=== PATIENT | female | born 1965 | race Caucasian/White ===

== ENCOUNTER 2018-01-31 05:54 | Emergency (ER) | payer OTHER, SELFPAY ==
[2018-01-31] VITALS (10 sets, daily range): BP systolic 117–150; BP diastolic 64–88; PULSE 80–116; RESP 14–20; TEMP 37; O2SAT 95–100; BMI 35.7
--- NOTE | 2018-01-31 06:01 | DI.RAD.S_ITS ---
PROCEDURE: XR CHEST 1V INDICATIONS: 53 year-old female with chest pain. TECHNIQUE: One view of the chest was acquired. COMPARISON: [facility], CR, XR CHEST 1 VIEW, 09/13/2017, 17:32. [facility], CR, CHEST 2 VIEW, 10/29/2016, 19:41. FINDINGS: Surgical changes and devices: None. Lungs and pleura: No pleural effusions or pneumothorax. Lungs are clear. Mediastinum: Mediastinal contours appear normal. Heart size is normal. Bones and chest wall: No suspicious bony lesions. Overlying soft tissues appear unremarkable. IMPRESSION: No acute cardiopulmonary disease. Dictated by: Chau Sands M.D. on 01/31/2018 at 7:58 Approved by: Chau Sands M.D. on 01/31/2018 at 7:59
--- NOTE | 2018-01-31 06:11 | ED_ITS ---
HPI - Chest Pain <Palma Reddy DO - Last Filed: 02/03/18 07:05> General Chief Complaint: Chest Pain Stated Complaint: chest pain, diarrhea shortness of breath Time Seen by Provider: 01/31/18 06:01 Source: patient, family and RN notes reviewed Mode of arrival: ambulatory Limitations: no limitations History of Present Illness HPI narrative: Patient is a 53-year-old female with history of atrial flutter and lupus presenting with chest pain. She said it has been ongoing since yesterday worse with exertion. The she was able to get to sleep last night however at 4:30 a.m. this morning it woke her from her sleep. It goes all across her chest. No known coronary artery disease. She denies any heart palpitations the, cough dizziness MD complaint: chest pain Onset (ago): day(s) Duration: constant Relieving factors: nothing Exacerbating factors: exertion Related Data Home Medications Medication Instructions Recorded Confirmed bisoprolol fumarate 5 mg OR Q DAY #0 10/29/16 01/31/18 levothyroxine [Synthroid] 25 mcg OR Q DAY #0 10/29/16 01/31/18 warfarin [Coumadin] 2.5 mg PO DAILY 01/31/18 01/31/18 Allergies Allergy/AdvReac Type Severity Reaction Status Date / Time prochlorperazine Allergy Severe Swelling Verified 01/31/18 09:20 [From COMPAZINE] of Lip/Tongue/Throat ondansetron [From Zofran] Allergy Intermediate Swelling Verified 01/31/18 06:46 of Lip/Tongue/Throat epinephrine [EPINEPHRINE] AdvReac Unknown TACHY Verified 01/31/18 06:46 hydromorphone [From DILAUDID] AdvReac Unknown CAN'T Verified 01/31/18 06:46 BREATH Review of Systems <DO Xuan Parker Last Filed: 02/03/18 07:05> Review of Systems All systems reviewed & are unremarkable except as noted in HPI and below Constitutional Denies chills, Denies fever(s), Denies lethargy and Denies weakness Cardiovascular Reports as per HPI and Reports dyspnea on exertion Respiratory Denies pain on inspiration, Denies pain with cough and Reports dyspnea on exertion Gastrointestinal Gastrointestinal: Denies abdominal pain, Denies change in bowel habits, Denies diarrhea, Denies nausea and Denies vomiting Musculoskeletal Denies back pain, Denies muscle weakness, Denies numbness and Denies tingling Neurologic Denies numbness, Denies tingling and Denies weakness PFSH <Palma Reddy DO - Last Filed: 02/03/18 07:05> Comment: Father and all of father's siblings have had MIs in their 40s Exam <Palma Reddy DO - Last Filed: 02/03/18 07:05> Initial Vital Signs Initial Vital Signs: Vital Signs Temperature 98.6 F 01/31/18 06:08 Pulse Rate 110 H 01/31/18 06:08 Respiratory Rate 18 01/31/18 06:08 Blood Pressure 150/88 H 01/31/18 06:08 Pulse Oximetry 100 01/31/18 06:08 Const General: cooperative and well developed Nutritional Appearance: well nourished Orientation: alert, awake, oriented x3 and not confused Neck Neck: normal visual inspection, full ROM and No JVD Resp Effort & Inspection: normal respiratory effort, able to speak in complete sentences, no respiratory distress and no use of accessory muscles Auscultation: clear to auscultation bilaterally, no rales, no rhonchi and no wheezes Cardio Rate: regular rate Rhythm: regular rhythm Heart Sounds: S1 normal and S2 normal Pulses: normal peripheral pulses GI Inspection: non-distended Palpation: soft, no hepatosplenomegaly, No guarding, No pulsatile mass and No tender Auscultation: normal bowel sounds Skin General: no rashes or lesions noted, No jaundice and No petechiae Neuro General: alert, oriented x3, gait normal and no focal motor deficits Speech: speech normal <Dudley Dodd, DO - Last Filed: 01/31/18 15:51> Initial Vital Signs Initial Vital Signs: Vital Signs Temperature 98.6 F 01/31/18 06:08 Pulse Rate 110 H 01/31/18 06:08 Respiratory Rate 18 01/31/18 06:08 Blood Pressure 150/88 H 01/31/18 06:08 Pulse Oximetry 100 01/31/18 06:08 <Dudley Dodd DO - Last Filed: 01/31/18 15:51> HEART Score Heart Score history: Moderately Suspicious Heart Score EKG: Normal Heart Score Age: 45-64 years old Heart Score risk factors: 1-2 risk factors Heart Score troponin: < or = to normal limit Heart Score Total: 3 Course <Palma Reddy DO - Last Filed: 02/03/18 07:05> Hospital Course: Records from [facility] obtained and reviewed. Old EKG reviewed and no changes noted. Continues to be nonischemic Orders Ordered: Discontinued Medications Aspirin (Aspirin Chew) 324 mg PO NOW ONE Stop: 01/31/18 06:02 Last Admin: 01/31/18 06:31 Dose: 324 mg Diphenhydramine HCl (Benadryl) 25 mg IV NOW ONE Stop: 01/31/18 09:36 Last Admin: 01/31/18 09:11 Dose: 25 mg Sodium Chloride (Normal Saline 0.9%) 1,000 mls @ 150 mls/hr IV CONT SHABBIR Last Admin: 01/31/18 06:32 Dose: 150 mls/hr Methylprednisolone (Solu-Medrol 125 Mg Vial) 125 mg IV NOW ONE Stop: 01/31/18 09:36 Last Admin: 01/31/18 09:11 Dose: 125 mg Nitroglycerin (Nitrostat) 0.4 mg SL [id number] PRN PRN Reason: Chest Pain Last Admin: 01/31/18 06:33 Dose: 0.4 mg Pantoprazole Sodium (Protonix) 40 mg IV NOW ONE Stop: 01/31/18 06:53 Last Admin: 01/31/18 07:27 Dose: 40 mg Vital Signs - 8 hr 01/31/18 08:26 01/31/18 09:17 01/31/18 09:38 Pulse Rate 81 89 82 Respiratory Rate 20 14 18 Blood Pressure Blood Pressure [Left Arm] 129/77 H 126/75 H 135/85 H Pulse Oximetry 98 100 99 01/31/18 10:38 01/31/18 12:02 Pulse Rate 80 88 Respiratory Rate 16 17 Blood Pressure 124/64 H Blood Pressure [Left Arm] 117/70 Pulse Oximetry 97 99 <Dudley Dodd DO - Last Filed: 01/31/18 15:51> Orders Ordered: Discontinued Medications Aspirin (Aspirin Chew) 324 mg PO NOW ONE Stop: 01/31/18 06:02 Last Admin: 01/31/18 06:31 Dose: 324 mg Diphenhydramine HCl (Benadryl) 25 mg IV NOW ONE Stop: 01/31/18 09:36 Last Admin: 01/31/18 09:11 Dose: 25 mg Sodium Chloride (Normal Saline 0.9%) 1,000 mls @ 150 mls/hr IV CONT SHABBIR Last Admin: 01/31/18 06:32 Dose: 150 mls/hr Methylprednisolone (Solu-Medrol 125 Mg Vial) 125 mg IV NOW ONE Stop: 01/31/18 09:36 Last Admin: 01/31/18 09:11 Dose: 125 mg Nitroglycerin (Nitrostat) 0.4 mg SL [id number] PRN PRN Reason: Chest Pain Last Admin: 01/31/18 06:33 Dose: 0.4 mg Pantoprazole Sodium (Protonix) 40 mg IV NOW ONE Stop: 01/31/18 06:53 Last Admin: 01/31/18 07:27 Dose: 40 mg Reevaluation(s) Reevaluation #1: Patient received in sign out at 7:[address] Reddy. I have independently interviewed and examined the patient. She is still having some sharp and stabbing left anterior chest pain, reproducible with palpation, deep breath and movement. She does continue to complain of shortness of breath and has a history of pulmonary embolism as well as other clots thought due to her lupus. CT angiogram for PE ordered. Repeat troponin at the 3 hr wilian Time: 08:48 Reevaluation #2: Records obtained from admission at [facility] and September. CT angiogram of chest was negative for PE. Echocardiogram showed EF of 50-55% with no valvular pathology. Stress test impressions says probable normal myocardial perfusion study Records from would be obtained regarding her recent hospitalization for pneumonia. Old EKG reviewed and no ischemic changes noted Time: 10:04 Vital Signs - 8 hr 01/31/18 08:26 01/31/18 09:17 01/31/18 09:38 Pulse Rate 81 89 82 Respiratory Rate 20 14 18 Blood Pressure Blood Pressure [Left Arm] 129/77 H 126/75 H 135/85 H Pulse Oximetry 98 100 99 01/31/18 10:38 01/31/18 12:02 Pulse Rate 80 88 Respiratory Rate 16 17 Blood Pressure 124/64 H Blood Pressure [Left Arm] 117/70 Pulse Oximetry 97 99 MDM - Chest Pain <Palma Reddy, - Last Filed: 02/03/18 07:05> Lab Data Result diagrams: 01/31/18 06:30 01/31/18 06:30 Lab Results 01/31/18 01/31/18 01/31/18 Range/Units 06:30 06:30 06:30 WBC 13.1 H (4.5-11.0) X10^3/uL RBC 4.51 (4.0-5.2) X10^6/uL Hgb 12.2 (12.0-16.0) g/dL Hct 37.3 (36-46) % MCV 82.8 (80-100) fL MCH 27.0 (26-34) PG MCHC 32.6 (30-36) % RDW 14.4 (11.6-14.8) % Plt Count 277 (150-400) X10^3/uL Neut % (Auto) 76.2 H (50-75) % Lymph % (Auto) 16.0 L (25-40) % [place] % (Auto) 6.7 (3-14) % Eos % (Auto) 0.8 L (2-4) % Baso % (Auto) 0.3 (0-2) % Neut # (Auto) 99265 H (5146-8007) /uL PT 21.8 H (10.1-12.7) SECONDS INR 2.0 H (0.9-1.3) APTT 38 H (26.4-36.2) SECONDS Sodium 139 (137-145) mmol/L Potassium 4.0 (3.4-5.1) mmol/L Chloride 104 (98-107) mmol/L Carbon Dioxide 23 (22-32) mmol/L BUN 16 (7-17) mg/dL Creatinine 0.70 (0.52-1.04) mg/dL Estimated GFR > 60.0 (>60) mL/min BUN/Creatinine Ratio 22.9 H (6-22) Glucose 116 H (70-100) mg/dL Calcium 9.2 (8.4-10.2) mg/dL Total Bilirubin 0.3 (0.2-1.3) mg/dL AST 24 (14-36) IU/L ALT 41 (9-52) IU/L Alkaline Phosphatase 54 (38-126) U/L Total Creatine Kinase 34 (30-135) U/L Troponin I < 0.012 (0.01-0.034) ng/mL B-Natriuretic Peptide < 100.0 (<100) Total Protein 7.3 (6.3-8.2) g/dL Albumin 4.0 (3.5-5.0) g/dL Globulin 3.3 (1.7-4.1) g/dL Albumin/Globulin Ratio 1.2 (1.0-2.8) Lipase 319 H (23-300) U/L Urine RBC (0-5/HPF) Urine WBC (0-5/HPF) Ur Squamous Epith Cells Calcium Oxalate Crystal (None) Urine Bacteria (None) Ur Culture Indicated? Micro UA Comment 01/31/18 01/31/18 Range/Units 07:39 10:05 WBC (4.5-11.0) X10^3/uL RBC (4.0-5.2) X10^6/uL Hgb (12.0-16.0) g/dL Hct (36-46) % MCV (80-100) fL MCH (26-34) PG MCHC (30-36) % RDW (11.6-14.8) % Plt Count (150-400) X10^3/uL Neut % (Auto) (50-75) % Lymph % (Auto) (25-40) % [place] % (Auto) (3-14) % Eos % (Auto) (2-4) % Baso % (Auto) (0-2) % Neut # (Auto) (7568-5436) /uL PT (10.1-12.7) SECONDS INR (0.9-1.3) APTT (26.4-36.2) SECONDS Sodium (137-145) mmol/L Potassium (3.4-5.1) mmol/L Chloride (98-107) mmol/L Carbon Dioxide (22-32) mmol/L BUN (7-17) mg/dL Creatinine (0.52-1.04) mg/dL Estimated GFR (>60) mL/min BUN/Creatinine Ratio (6-22) Glucose (70-100) mg/dL Calcium (8.4-10.2) mg/dL Total Bilirubin (0.2-1.3) mg/dL AST (14-36) IU/L ALT (9-52) IU/L Alkaline Phosphatase (38-126) U/L Total Creatine Kinase (30-135) U/L Troponin I < 0.012 (0.01-0.034) ng/mL B-Natriuretic Peptide (<100) Total Protein (6.3-8.2) g/dL Albumin (3.5-5.0) g/dL Globulin (1.7-4.1) g/dL Albumin/Globulin Ratio (1.0-2.8) Lipase (23-300) U/L Urine RBC 5-10/hpf H (0-5/HPF) Urine WBC None seen (0-5/HPF) Ur Squamous Epith Cells >30 /hpf H Calcium Oxalate Crystal Many H (None) Urine Bacteria None seen (None) Ur Culture Indicated? Cult not indicated Micro UA Comment Not Reportable <Dudley Dodd, DO - Last Filed: 01/31/18 15:51> Differential Diagnosis Likely fracture of rib, pneumothorax, stable angina, unstable angina pectoris, atypical chest pain, st elevation myocardial infarction, costochondritis and chest pain Medical Records Data Attestation: I reviewed the patient's medical records. Lab Data Attestation: I reviewed the patient's lab results. Lab Results 01/31/18 01/31/18 01/31/18 Range/Units 06:30 06:30 06:30 WBC 13.1 H (4.5-11.0) X10^3/uL RBC 4.51 (4.0-5.2) X10^6/uL Hgb 12.2 (12.0-16.0) g/dL Hct 37.3 (36-46) % MCV 82.8 (80-100) fL MCH 27.0 (26-34) PG MCHC 32.6 (30-36) % RDW 14.4 (11.6-14.8) % Plt Count 277 (150-400) X10^3/uL Neut % (Auto) 76.2 H (50-75) % Lymph % (Auto) 16.0 L (25-40) % [place] % (Auto) 6.7 (3-14) % Eos % (Auto) 0.8 L (2-4) % Baso % (Auto) 0.3 (0-2) % Neut # (Auto) 36904 H (9002-6687) /uL PT 21.8 H (10.1-12.7) SECONDS INR 2.0 H (0.9-1.3) APTT 38 H (26.4-36.2) SECONDS Sodium 139 (137-145) mmol/L Potassium 4.0 (3.4-5.1) mmol/L Chloride 104 (98-107) mmol/L Carbon Dioxide 23 (22-32) mmol/L BUN 16 (7-17) mg/dL Creatinine 0.70 (0.52-1.04) mg/dL Estimated GFR > 60.0 (>60) mL/min BUN/Creatinine Ratio 22.9 H (6-22) Glucose 116 H (70-100) mg/dL Calcium 9.2 (8.4-10.2) mg/dL Total Bilirubin 0.3 (0.2-1.3) mg/dL AST 24 (14-36) IU/L ALT 41 (9-52) IU/L Alkaline Phosphatase 54 (38-126) U/L Total Creatine Kinase 34 (30-135) U/L Troponin I < 0.012 (0.01-0.034) ng/mL B-Natriuretic Peptide < 100.0 (<100) Total Protein 7.3 (6.3-8.2) g/dL Albumin 4.0 (3.5-5.0) g/dL Globulin 3.3 (1.7-4.1) g/dL Albumin/Globulin Ratio 1.2 (1.0-2.8) Lipase 319 H (23-300) U/L Urine RBC (0-5/HPF) Urine WBC (0-5/HPF) Ur Squamous Epith Cells Calcium Oxalate Crystal (None) Urine Bacteria (None) Ur Culture Indicated? Micro UA Comment 01/31/18 01/31/18 Range/Units 07:39 10:05 WBC (4.5-11.0) X10^3/uL RBC (4.0-5.2) X10^6/uL Hgb (12.0-16.0) g/dL Hct (36-46) % MCV (80-100) fL MCH (26-34) PG MCHC (30-36) % RDW (11.6-14.8) % Plt Count (150-400) X10^3/uL Neut % (Auto) (50-75) % Lymph % (Auto) (25-40) % [place] % (Auto) (3-14) % Eos % (Auto) (2-4) % Baso % (Auto) (0-2) % Neut # (Auto) (7616-9408) /uL PT (10.1-12.7) SECONDS INR (0.9-1.3) APTT (26.4-36.2) SECONDS Sodium (137-145) mmol/L Potassium (3.4-5.1) mmol/L Chloride (98-107) mmol/L Carbon Dioxide (22-32) mmol/L BUN (7-17) mg/dL Creatinine (0.52-1.04) mg/dL Estimated GFR (>60) mL/min BUN/Creatinine Ratio (6-22) Glucose (70-100) mg/dL Calcium (8.4-10.2) mg/dL Total Bilirubin (0.2-1.3) mg/dL AST (14-36) IU/L ALT (9-52) IU/L Alkaline Phosphatase (38-126) U/L Total Creatine Kinase (30-135) U/L Troponin I < 0.012 (0.01-0.034) ng/mL B-Natriuretic Peptide (<100) Total Protein (6.3-8.2) g/dL Albumin (3.5-5.0) g/dL Globulin (1.7-4.1) g/dL Albumin/Globulin Ratio (1.0-2.8) Lipase (23-300) U/L Urine RBC 5-10/hpf H (0-5/HPF) Urine WBC None seen (0-5/HPF) Ur Squamous Epith Cells >30 /hpf H Calcium Oxalate Crystal Many H (None) Urine Bacteria None seen (None) Ur Culture Indicated? Cult not indicated Micro UA Comment Not Reportable Imaging Data CT scan - chest: Radiologist's impression: PROCEDURE: CT ANGIO CHEST PE PROTOCOL INDICATIONS: Chest pain, Shortness of breath, history of pulmonary embolism, lupus TECHNIQUE: After the administration of intravenous contrast, 2 mm thick sections acquired from the pulmonary apices to the posterior costophrenic angles. 3-dimensional maximum intensity projection (MIP) coronal and sagittal reformats were then acquired through the thorax. For radiation dose reduction, the following was used: automated exposure control, adjustment of mA and/or kV according to patient size. COMPARISON: [facility], , XR CHEST 1V, 01/31/2018, 6:10. [facility] , CR, CHEST 2 VIEW, 10/29/2016, 19:41. FINDINGS: Image quality: Excellent. Pulmonary arteries: Pulmonary arteries are normal in size, and demonstrate no intraluminal filling defects to suggest central pulmonary embolism. Lungs and pleura: Lungs are clear. No pleural effusions or pneumothorax. Central and peripheral airways are patent. Mediastinum: Heart size is normal, without pericardial effusion. No mediastinal or hilar adenopathy. Thoracic aorta is normal in caliber and enhancement. Esophagus is normal in caliber, without hiatal hernia. Bones and chest wall: No suspicious bony lesions. Ribs and thoracic spine appear intact throughout. Thyroid gland is unremarkable. No axillary or supraclavicular adenopathy. Abdomen: Visualized upper abdominal solid organs appear normal in the early arterial phase of enhancement. IMPRESSION: 1. No pulmonary embolism. 2. Lungs are clear. Dictated by: Brigida Quinones M.D. on 01/31/2018 at 9:35 Approved by: Brigida Quinones M.D. on 01/31/2018 at 9:39 ECG Data Attestation: I personally reviewed and interpreted this ECG as follows: Prior ECG tracings: available for review MDM Narrative Medical decision making narrative: Patient is had multiple EKGs that are unchanged from prior. Multiple troponins are unremarkable. CT scan of chest demonstrates no PE or ongoing pneumonia. Her pain is sharp and reproducible upon palpation of her left anterior chest. She is been asymptomatic for quite some time in the emergency department Discharge Plan Departure Patient Disposition: Home, Self-Care Clinical Impression: Atypical chest pain Discharge Date/Time: 01/31/18 12:03 Interventions: ED Discharge Assessment Last Done: 01/31/18 12:02 Instructions: DI for Atypical Chest Pain Activity Restrictions/Additional Instructions: *You have been diagnosed with [ atypical chest pain ] *What to do: * continue to take medications as directed *Follow up with your primary care provider in 2-3 days *Return to ER if you should haveany new, worsening or concerning symptoms Prescriptions: No Action bisoprolol fumarate 5 MG tablet 5 mg OR Q DAY Qty: 0 RF: 0 levothyroxine [Synthroid] 25 MCG tablet 25 mcg OR Q DAY Qty: 0 RF: 0 warfarin [Coumadin] 2.5 mg Tablet 2.5 mg PO DAILY RF: 0 Referrals: Ana Ordonez MD [Primary Care Provider] - ED Cosign/Signout <Palma Reddy DO - Last Filed: 02/03/18 07:05> Sign Out Provider Sign Out Attestation: Patient signed out to Dr. Dodd at shift change. Labs and repeat EKG pending.
[2018-01-31] MEDS: ASPIRIN 81 MG TAB 324 MG PO (06:31)
[2018-01-31] MEDS: SODIUM CHLORIDE 0.9% 1,000 ML 150 ML IV (06:32)
[2018-01-31] MEDS: NITROGLYCERIN 0.4 MG SL TAB SL (06:33)
[2018-01-31 06:34] LABS: Add Manual Diff / Slide Review NO; Basophils Percent Auto 0.3 % (0-2); Eosinophils Percent Auto 0.8 % (2-4); Hematocrit 37.3 % (36-46); Hemoglobin 12.2 g/dL (12.0-16.0); Mean Corpuscular HGB Conc 32.6 % (30-36); Mean Corpuscular Volume 82.8 fL (80-100); Monocytes Percent Auto 6.7 % (3-14); Neutrophils Absolute Auto 10000 /uL (3000-5900); Neutrophils Percent Auto 76.2 % (50-75); Platelet Count 277 X10^3/uL (150-400); Red Blood Cell Count 4.51 X10^6/uL (4.0-5.2); Red Cell Distribution Width 14.4 % (11.6-14.8); White Blood Cell Count 13.1 X10^3/uL (4.5-11.0)
[2018-01-31 06:40] LABS: Prothrombin Time 21.8 SECONDS (10.1-12.7)
[2018-01-31 06:44] LABS: Alanine Aminotransferase 41 IU/L (9-52); Albumin Globulin Ratio 1.2 (1.0-2.8); Alkaline Phosphatase 54 U/L (38-126); Aspartate Aminotransferase 24 IU/L (14-36); BUN Creatinine Ratio 22.9 (6-22); Bilirubin Total 0.3 mg/dL (0.2-1.3); Blood Urea Nitrogen 16 mg/dL (7-17); Calcium 9.2 mg/dL (8.4-10.2); Carbon Dioxide 23 mmol/L (22-32); Chloride 104 mmol/L (98-107); Creatine Kinase 34 U/L (30-135); Estimated Glomerular Filt Rate > 60.0 mL/min (>60); Globulin 3.3 g/dL (1.7-4.1); Glucose 116 mg/dL (70-100); HEMOLYSIS < 15 (0-50); Lipase 319 U/L (23-300); Sodium 139 mmol/L (137-145); Total Protein 7.3 g/dL (6.3-8.2)
[2018-01-31 06:53] LABS: PTT Partial Thromboplastin Tim 38 SECONDS (26.4-36.2)
[2018-01-31 06:57] LABS: B Type Natriuretic Peptide < 100.0 (<100); Troponin I < 0.012 ng/mL (0.01-0.034)
[2018-01-31] MEDS: PANTOPRAZOLE 40 MG VIAL IV (07:27)
[2018-01-31 07:53] LABS: Bacteria Urine None Seen; WBC Urine None Seen (0-5/HPF)
[2018-01-31 08:03] LABS: RBC Urine 5-10/HPF (0-5/HPF); Squamous Epithelial Cell Urine >30 /HPF
[2018-01-31 08:04] LABS: Calcium Oxalate Crystals Urine Many; Culture Indicated Urine Cult Not Indicated
--- NOTE | 2018-01-31 08:48 | DI.CT.S_ITS ---
PROCEDURE: CT ANGIO CHEST PE PROTOCOL INDICATIONS: Chest pain, Shortness of breath, history of pulmonary embolism, lupus TECHNIQUE: After the administration of intravenous contrast, 2 mm thick sections acquired from the pulmonary apices to the posterior costophrenic angles. 3-dimensional maximum intensity projection (MIP) coronal and sagittal reformats were then acquired through the thorax. For radiation dose reduction, the following was used: automated exposure control, adjustment of mA and/or kV according to patient size. COMPARISON: [facility], CR, XR CHEST 1V, 01/31/2018, 6:10. [facility], , CHEST 2 VIEW, 10/29/2016, 19:41. FINDINGS: Image quality: Excellent. Pulmonary arteries: Pulmonary arteries are normal in size, and demonstrate no intraluminal filling defects to suggest central pulmonary embolism. Lungs and pleura: Lungs are clear. No pleural effusions or pneumothorax. Central and peripheral airways are patent. Mediastinum: Heart size is normal, without pericardial effusion. No mediastinal or hilar adenopathy. Thoracic aorta is normal in caliber and enhancement. Esophagus is normal in caliber, without hiatal hernia. Bones and chest wall: No suspicious bony lesions. Ribs and thoracic spine appear intact throughout. Thyroid gland is unremarkable. No axillary or supraclavicular adenopathy. Abdomen: Visualized upper abdominal solid organs appear normal in the early arterial phase of enhancement. IMPRESSION: 1. No pulmonary embolism. 2. Lungs are clear. Dictated by: Brigida Quinones M.D. on 01/31/2018 at 9:35 Approved by: Brigida Quinones M.D. on 01/31/2018 at 9:39
[2018-01-31] MEDS: methylPREDNISolone 125 MG/2 ML VIAL IV (09:11)
[2018-01-31] MEDS: diphenhydrAMINE 50 MG/ML VIAL 25 MG IV (09:11)
--- NOTE | 2018-01-31 09:11 | PC.NURSE ---
reports, throat thickening, no rash or itching, dr swan aware.
[2018-01-31 10:41] LABS: Troponin I < 0.012 ng/mL (0.01-0.034)
== END 2018-01-31 12:03 | disposition home or self-care (01) ==
PROVIDERS: Emergency Medicine; Emergency Provider Emergency Medicine; PCP Family Medicine
DX: R07.89 Other chest pain (principal)
CPT/HCPCS: 36415; 36591; 71045; 71275; 80053; 81003; 81015; 82550; 82553; 83690; 83880; 84484; 85025; 85610; 85730; 93005; 96374; 96375; 99285; C9113; J1200; J2930; Q9967

== ENCOUNTER 2018-10-05 19:04 | Emergency (ER) | payer OTHER, SELFPAY ==
[2018-10-05] VITALS (7 sets, daily range): BP systolic 110–153; BP diastolic 57–79; PULSE 73–89; RESP 10–21; TEMP 36.9; O2SAT 97–100; BMI 36.6
--- NOTE | 2018-10-05 19:35 | DI.RAD.S_ITS ---
PROCEDURE: XR CHEST 1V INDICATIONS: Chest pressure TECHNIQUE: One view of the chest was acquired. COMPARISON: [facility], CR, XR CHEST 1V, 01/31/2018, 6:10. FINDINGS: Surgical changes and devices: None. Lungs and pleura: Lungs are clear. No pleural effusions or pneumothorax. Mediastinum: Mediastinal contours appear normal. Heart size is normal. Bones and chest wall: No suspicious bony lesions. Overlying soft tissues appear unremarkable. IMPRESSION: No acute cardiopulmonary disease. Dictated by: Fadia Limon M.D. on 10/05/2018 at 20:10 Approved by: Fadia Limon M.D. on 10/05/2018 at 20:11
[2018-10-05 20:22] LABS: Add Manual Diff / Slide Review NO; Basophils Absolute Auto 100 /uL (0-100); Basophils Percent Auto 0.5 % (0-2); Eosinophils Absolute Auto 200 /uL (0-450); Eosinophils Percent Auto 2.1 % (2-4); Hematocrit 34.9 % (36-46); Hemoglobin 11.6 g/dL (12.0-16.0); Lymphocytes Absolute Auto 2200 /uL (1100-4500); Lymphocytes Percent Auto 20.8 % (25-40); Mean Corpuscular HGB Conc 33.3 % (30-36); Mean Corpuscular Hemoglobin 26.7 PG (26-34); Mean Corpuscular Volume 80.2 fL (80-100); Monocytes Absolute Auto 1000 /uL (0-900); Monocytes Percent Auto 9.3 % (3-14); Neutrophils Absolute Auto 7100 /uL (1500-7000); Neutrophils Percent Auto 67.3 % (50-75); Platelet Count 247 X10^3/uL (150-400); Red Blood Cell Count 4.35 X10^6/uL (4.0-5.2); Red Cell Distribution Width 16.6 % (11.6-14.8); White Blood Cell Count 10.6 X10^3/uL (4.5-11.0)
--- NOTE | 2018-10-05 20:30 | ED.SOB ---
HPI - SOB/Dyspnea <RAO Garcia - Last Filed: 10/05/18 21:42> General Chief Complaint: Shortness of Breath/Dyspnea Stated Complaint: states reaction to medication,sob Time Seen by Provider: 10/05/18 19:05 Source: patient Mode of arrival: ambulatory Limitations: no limitations History of Present Illness 53-year-old female with history of lupus is a nonsmoker here for complaint having pressure to her chest area. She reports that she was at Ophthalmology today and they gave her eyedrops for continued care for lens replacement surgery several weeks ago. They gave her dorzolamide and timolol combination eyedrops at approximately at 5 this afternoon and she reports having had chest pressure starting shortly after this timeframe. She also states she felt like she had dry throat at the same timeframe. She denies any pain. She does state that the tightness in her chest made it feel like she had a hard time taking a deep inspiration. She denies any sensation of tightening in her throat or anaphylaxis type of sensation she states that her symptoms are better at this timeframe and she is not having the shortness of breath. No nausea vomiting. No diaphoresis. She is ambulatory into the emergency room. Related Data Home Medications Medication Instructions Recorded Confirmed bisoprolol fumarate 5 mg OR Q DAY #0 10/29/16 01/31/18 levothyroxine [Synthroid] 25 mcg OR Q DAY #0 10/29/16 01/31/18 warfarin [Coumadin] 2.5 mg PO DAILY 01/31/18 01/31/18 Allergies Allergy/AdvReac Type Severity Reaction Status Date / Time prochlorperazine Allergy Severe Swelling Verified 10/05/18 19:20 [From COMPAZINE] of Lip/Tongue/Throat ondansetron [From Zofran] Allergy Intermediate Swelling Verified 10/05/18 19:20 of Lip/Tongue/Throat epinephrine [EPINEPHRINE] AdvReac Unknown TACHY Verified 10/05/18 19:20 hydromorphone [From DILAUDID] AdvReac Unknown CAN'T Verified 10/05/18 19:20 BREATH Review of Systems <RAO Garcia - Last Filed: 10/05/18 21:42> Constitutional Denies chills, Denies fever(s), Denies lethargy and Denies weakness Eyes Denies change in vision, Denies eye discharge, Denies irritation and Denies loss of vision ENT Ears, Nose, Mouth, and Throat: Denies change in voice, Denies neck pain and Denies sore throat Cardiovascular Denies irregular heart rhythm, Denies lightheadedness, Denies palpitations, Denies dyspnea, Denies dyspnea on exertion and Denies orthopnea Comments: Chest tightness after medication administration Respiratory Denies cough, Denies dyspnea, Denies dyspnea on exertion and Denies wheezing Gastrointestinal Gastrointestinal: Denies abdominal pain, Denies change in bowel habits, Denies diarrhea, Denies nausea and Denies vomiting Genitourinary Denies hematuria, Denies flank pain, Denies urinary incontinence and Denies urinary urgency Musculoskeletal Denies neck pain Neurologic Denies confusion, Denies loss of vision and Denies weakness Psychiatric Denies anxiety, Denies confusion, Denies depression, Denies homicidal ideation and Denies suicidal ideation Endocrine Denies palpitations Hematologic/Lymphatic Denies easy bruising Allergic/Immunologic Denies wheezing PFSH <RAO Garcia - Last Filed: 10/05/18 21:42> Medical History Atrial flutter (Acute) Lupus (Acute) Ulcerative colitis (Acute) Family History Father Coronary artery disease Family/Other Coronary artery disease Social History Smoking Status: Never smoker alcohol intake: never Family History Father Coronary artery disease Family/Other Coronary artery disease Social History Smoking Status: Never smoker alcohol intake: never Exam <RAO Garcia - Last Filed: 10/05/18 21:42> Initial Vital Signs Initial Vital Signs: Vital Signs Temperature 98.4 F 10/05/18 19:10 Pulse Rate 81 10/05/18 19:10 Respiratory Rate 10 L 10/05/18 19:10 Blood Pressure 140/64 10/05/18 19:10 Pulse Oximetry 100 10/05/18 19:10 Const General: cooperative and well developed Nutritional Appearance: well nourished Orientation: alert, awake, oriented x3 and not confused HENMT Mouth: oral mucosae normal and moist mucous membranes Throat: posterior oropharynx normal Chest Chest: normal inspection of the chest Resp Effort & Inspection: normal respiratory effort, able to speak in complete sentences, no respiratory distress and no use of accessory muscles Auscultation: clear to auscultation bilaterally, no rales, no rhonchi and no wheezes Cardio Rate: regular rate Rhythm: regular rhythm Heart Sounds: no click, no gallops, no murmurs and no rubs Skin General: no rashes or lesions noted, No jaundice and No petechiae Neuro General: alert, oriented x3, gait normal and no focal motor deficits Speech: speech normal <Kong Figueroa DO - Last Filed: 10/05/18 22:15> Initial Vital Signs Initial Vital Signs: Vital Signs Temperature 98.4 F 10/05/18 19:10 Pulse Rate 81 10/05/18 19:10 Respiratory Rate 10 L 10/05/18 19:10 Blood Pressure 140/64 10/05/18 19:10 Pulse Oximetry 100 10/05/18 19:10 Course <RAO Garcia - Last Filed: 10/05/18 21:42> Orders Ordered: ED Orders 10/05/18 19:19 EKG-12 Lead Stat 10/05/18 19:35 XR chest 1V Stat 10/05/18 20:16 Complete Blood Count AUTO DIFF Stat Comprehensive Metabolic Panel Stat Troponin & CK Cardiac Panel Stat 10/05/18 21:56 Troponin I Stat Vital Signs - 8 hr 10/05/18 19:10 10/05/18 19:30 10/05/18 20:55 Temperature 98.4 F Pulse Rate 81 74 89 Respiratory Rate 10 L 15 18 Blood Pressure 140/64 Blood Pressure [Right Arm] 153/79 H 129/72 Pulse Oximetry 100 99 97 10/05/18 21:30 10/05/18 22:00 Temperature Pulse Rate 76 76 Respiratory Rate 18 21 Blood Pressure Blood Pressure [Right Arm] 110/57 L 125/71 Pulse Oximetry 100 99 <Kong Figueroa DO - Last Filed: 10/05/18 22:15> Orders Ordered: ED Orders 10/05/18 19:19 EKG-12 Lead Stat 10/05/18 19:35 XR chest 1V Stat 10/05/18 20:16 Complete Blood Count AUTO DIFF Stat Comprehensive Metabolic Panel Stat Troponin & CK Cardiac Panel Stat 10/05/18 21:56 Troponin I Stat Vital Signs - 8 hr 10/05/18 19:10 10/05/18 19:30 10/05/18 20:55 Temperature 98.4 F Pulse Rate 81 74 89 Respiratory Rate 10 L 15 18 Blood Pressure 140/64 Blood Pressure [Right Arm] 153/79 H 129/72 Pulse Oximetry 100 99 97 10/05/18 21:30 10/05/18 22:00 Temperature Pulse Rate 76 76 Respiratory Rate 18 21 Blood Pressure Blood Pressure [Right Arm] 110/57 L 125/71 Pulse Oximetry 100 99 MDM - SOB/Dyspnea <RAO Garcia - Last Filed: 10/05/18 21:42> Lab Data Result diagrams: 10/05/18 20:16 10/05/18 20:16 Lab Results 10/05/18 10/05/18 Range/Units 20:16 20:16 WBC 10.6 (4.5-11.0) X10^3/uL RBC 4.35 (4.0-5.2) X10^6/uL Hgb 11.6 L (12.0-16.0) g/dL Hct 34.9 L (36-46) % MCV 80.2 (80-100) fL MCH 26.7 (26-34) PG MCHC 33.3 (30-36) % RDW 16.6 H (11.6-14.8) % Plt Count 247 (150-400) X10^3/uL Neut % (Auto) 67.3 (50-75) % Lymph % (Auto) 20.8 L (25-40) % [place] % (Auto) 9.3 (3-14) % Eos % (Auto) 2.1 (2-4) % Baso % (Auto) 0.5 (0-2) % Neut # (Auto) 7100 H (7299-3883) /uL Lymph # (Auto) 2200 (0773-1861) /uL [place] # (Auto) 1000 H (0-900) /uL Eos # (Auto) 200 (0-450) /uL Baso # (Auto) 100 (0-100) /uL Sodium 136 L (137-145) mmol/L Potassium 3.9 (3.4-5.1) mmol/L Chloride 103 (98-107) mmol/L Carbon Dioxide 26 (22-32) mmol/L BUN 12 (7-17) mg/dL Creatinine 1.00 (0.52-1.04) mg/dL Estimated GFR 58.5 L (>60) mL/min BUN/Creatinine Ratio 12.0 (6-22) Glucose 116 H (70-100) mg/dL Calcium 9.1 (8.4-10.2) mg/dL Total Bilirubin 0.1 L (0.2-1.3) mg/dL AST 34 (14-36) IU/L ALT 42 (9-52) IU/L Alkaline Phosphatase 54 (38-126) U/L Total Creatine Kinase 30 (30-135) U/L CK-MB (CK-2) TNP CK-MB (CK-2) Rel Index TNP Troponin I < 0.012 (0.01-0.034) ng/mL Total Protein 7.1 (6.3-8.2) g/dL Albumin 3.9 (3.5-5.0) g/dL Globulin 3.2 (1.7-4.1) g/dL Albumin/Globulin Ratio 1.2 (1.0-2.8) Imaging Data Chest x-ray: Radiologist's impression: [place] [address] XRay Report Signed Patient: Chaka Soto#: [id number] : 1965Acct:[id number] Age/Sex: 53 / FDate of Service: 10/05/18 Loc: Accession Number: [id number] Procedure: XR chest 1V Ordering Provider: Marcio Soriano PROCEDURE: XR CHEST 1V INDICATIONS: Chest pressure TECHNIQUE: One view of the chest was acquired. COMPARISON: [facility], , XR CHEST 1V, 01/31/2018, 6:10. FINDINGS: Surgical changes and devices: None. Lungs and pleura: Lungs are clear. No pleural effusions or pneumothorax. Mediastinum: Mediastinal contours appear normal. Heart size is normal. Bones and chest wall: No suspicious bony lesions. Overlying soft tissues appear unremarkable. IMPRESSION: No acute cardiopulmonary disease. Dictated by: Fadia Limon M.D. on 10/05/2018 at 20:10 Approved by: Fadia Limon M.D. on 10/05/2018 at 20:11 ECG Data Interpretation: EKG shows normal sinus rhythm with no ST elevation or depression. No ectopy. Ventricular rate is 77. Pr interval of 160. QRS duration of 90. QTC of 419. MDM Narrative Medical decision making narrative: Chest x-ray was obtained was unremarkable. EKG shows sinus rhythm with no ST elevation or depression. No ectopy. CBC and Chem panel were obtained were unremarkable. Two sets of cardiac enzymes were obtained and were unremarkable. Patient's symptoms have resolved. Listed side effects of dorzolamide and timolol list both chest pain and dyspnea. Symptoms the patient had earlier before is possible may be secondary to the medication administration. She is feeling much better at this timeframe. She is released home follow up with primary care provider. Follow up with Ophthalmology as scheduled. For any worsening symptoms return to the emergency room. <Kong Figueroa DO - Last Filed: 10/05/18 22:15> Lab Data Lab Results 10/05/18 10/05/18 Range/Units 20:16 20:16 WBC 10.6 (4.5-11.0) X10^3/uL RBC 4.35 (4.0-5.2) X10^6/uL Hgb 11.6 L (12.0-16.0) g/dL Hct 34.9 L (36-46) % MCV 80.2 (80-100) fL MCH 26.7 (26-34) PG MCHC 33.3 (30-36) % RDW 16.6 H (11.6-14.8) % Plt Count 247 (150-400) X10^3/uL Neut % (Auto) 67.3 (50-75) % Lymph % (Auto) 20.8 L (25-40) % [place] % (Auto) 9.3 (3-14) % Eos % (Auto) 2.1 (2-4) % Baso % (Auto) 0.5 (0-2) % Neut # (Auto) 7100 H (8481-0034) /uL Lymph # (Auto) 2200 (4190-2930) /uL [place] # (Auto) 1000 H (0-900) /uL Eos # (Auto) 200 (0-450) /uL Baso # (Auto) 100 (0-100) /uL Sodium 136 L (137-145) mmol/L Potassium 3.9 (3.4-5.1) mmol/L Chloride 103 (98-107) mmol/L Carbon Dioxide 26 (22-32) mmol/L BUN 12 (7-17) mg/dL Creatinine 1.00 (0.52-1.04) mg/dL Estimated GFR 58.5 L (>60) mL/min BUN/Creatinine Ratio 12.0 (6-22) Glucose 116 H (70-100) mg/dL Calcium 9.1 (8.4-10.2) mg/dL Total Bilirubin 0.1 L (0.2-1.3) mg/dL AST 34 (14-36) IU/L ALT 42 (9-52) IU/L Alkaline Phosphatase 54 (38-126) U/L Total Creatine Kinase 30 (30-135) U/L CK-MB (CK-2) TNP CK-MB (CK-2) Rel Index TNP Troponin I < 0.012 (0.01-0.034) ng/mL Total Protein 7.1 (6.3-8.2) g/dL Albumin 3.9 (3.5-5.0) g/dL Globulin 3.2 (1.7-4.1) g/dL Albumin/Globulin Ratio 1.2 (1.0-2.8) Discharge Plan Departure Patient Disposition: Home Clinical Impression: Chest tightness Instructions: DI for Atypical Chest Pain Activity Restrictions/Additional Instructions: Chest x-ray EKG and laboratory results today were unremarkable. Symptoms have resolved. Is possible that this is side effect of the medication was given to by Ophthalmology. Follow up with her primary care provider for further evaluation. Follow up with Ophthalmology as scheduled. For any worsening symptoms return to the emergency room. Prescriptions: No Action bisoprolol fumarate 5 MG tablet 5 mg OR Q DAY Qty: 0 RF: 0 levothyroxine [Synthroid] 25 MCG tablet 25 mcg OR Q DAY Qty: 0 RF: 0 warfarin [Coumadin] 2.5 mg Tablet 2.5 mg PO DAILY RF: 0 Referrals: Ana Ordonez MD [Primary Care Provider] - <Kong Figueroa DO - Last Filed: 10/05/18 22:15> Cosign ED Attending Brigetteature Attestation: I was available for consultation during this patient's emergency department encounter
--- NOTE | 2018-10-05 20:38 | ED_ITS ---
HPI - SOB/Dyspnea <RAO Garcia - Last Filed: 10/05/18 21:42> General Chief Complaint: Shortness of Breath/Dyspnea Stated Complaint: states reaction to medication,sob Time Seen by Provider: 10/05/18 19:05 Source: patient Mode of arrival: ambulatory Limitations: no limitations History of Present Illness 53-year-old female with history of lupus is a nonsmoker here for complaint having pressure to her chest area. She reports that she was at Ophthalmology today and they gave her eyedrops for continued care for lens replacement surgery several weeks ago. They gave her dorzolamide and timolol combination eyedrops at approximately at 5 this afternoon and she reports having had chest pressure starting shortly after this timeframe. She also states she felt like she had dry throat at the same timeframe. She denies any pain. She does state that the tightness in her chest made it feel like she had a hard time taking a deep inspiration. She denies any sensation of tightening in her throat or anaphylaxis type of sensation she states that her symptoms are better at this timeframe and she is not having the shortness of breath. No nausea vomiting. No diaphoresis. She is ambulatory into the emergency room. Related Data Home Medications Medication Instructions Recorded Confirmed bisoprolol fumarate 5 mg OR Q DAY #0 10/29/16 01/31/18 levothyroxine [Synthroid] 25 mcg OR Q DAY #0 10/29/16 01/31/18 warfarin [Coumadin] 2.5 mg PO DAILY 01/31/18 01/31/18 Allergies Allergy/AdvReac Type Severity Reaction Status Date / Time prochlorperazine Allergy Severe Swelling Verified 10/05/18 19:20 [From COMPAZINE] of Lip/Tongue/Throat ondansetron [From Zofran] Allergy Intermediate Swelling Verified 10/05/18 19:20 of Lip/Tongue/Throat epinephrine [EPINEPHRINE] AdvReac Unknown TACHY Verified 10/05/18 19:20 hydromorphone [From DILAUDID] AdvReac Unknown CAN'T Verified 10/05/18 19:20 BREATH Review of Systems <RAO Garcia - Last Filed: 10/05/18 21:42> Constitutional Denies chills, Denies fever(s), Denies lethargy and Denies weakness Eyes Denies change in vision, Denies eye discharge, Denies irritation and Denies loss of vision ENT Ears, Nose, Mouth, and Throat: Denies change in voice, Denies neck pain and Denies sore throat Cardiovascular Denies irregular heart rhythm, Denies lightheadedness, Denies palpitations, Denies dyspnea, Denies dyspnea on exertion and Denies orthopnea Comments: Chest tightness after medication administration Respiratory Denies cough, Denies dyspnea, Denies dyspnea on exertion and Denies wheezing Gastrointestinal Gastrointestinal: Denies abdominal pain, Denies change in bowel habits, Denies diarrhea, Denies nausea and Denies vomiting Genitourinary Denies hematuria, Denies flank pain, Denies urinary incontinence and Denies urinary urgency Musculoskeletal Denies neck pain Neurologic Denies confusion, Denies loss of vision and Denies weakness Psychiatric Denies anxiety, Denies confusion, Denies depression, Denies homicidal ideation and Denies suicidal ideation Endocrine Denies palpitations Hematologic/Lymphatic Denies easy bruising Allergic/Immunologic Denies wheezing PFSH <RAO Garcia - Last Filed: 10/05/18 21:42> Medical History Atrial flutter (Acute) Lupus (Acute) Ulcerative colitis (Acute) Family History Father Coronary artery disease Family/Other Coronary artery disease Social History Smoking Status: Never smoker alcohol intake: never Family History Father Coronary artery disease Family/Other Coronary artery disease Social History Smoking Status: Never smoker alcohol intake: never Exam <RAO Garcia - Last Filed: 10/05/18 21:42> Initial Vital Signs Initial Vital Signs: Vital Signs Temperature 98.4 F 10/05/18 19:10 Pulse Rate 81 10/05/18 19:10 Respiratory Rate 10 L 10/05/18 19:10 Blood Pressure 140/64 10/05/18 19:10 Pulse Oximetry 100 10/05/18 19:10 Const General: cooperative and well developed Nutritional Appearance: well nourished Orientation: alert, awake, oriented x3 and not confused HENMT Mouth: oral mucosae normal and moist mucous membranes Throat: posterior oropharynx normal Chest Chest: normal inspection of the chest Resp Effort & Inspection: normal respiratory effort, able to speak in complete sentences, no respiratory distress and no use of accessory muscles Auscultation: clear to auscultation bilaterally, no rales, no rhonchi and no wheezes Cardio Rate: regular rate Rhythm: regular rhythm Heart Sounds: no click, no gallops, no murmurs and no rubs Skin General: no rashes or lesions noted, No jaundice and No petechiae Neuro General: alert, oriented x3, gait normal and no focal motor deficits Speech: speech normal <Kong Figueroa DO - Last Filed: 10/05/18 22:15> Initial Vital Signs Initial Vital Signs: Vital Signs Temperature 98.4 F 10/05/18 19:10 Pulse Rate 81 10/05/18 19:10 Respiratory Rate 10 L 10/05/18 19:10 Blood Pressure 140/64 10/05/18 19:10 Pulse Oximetry 100 10/05/18 19:10 Course <RAO Garcia - Last Filed: 10/05/18 21:42> Orders Ordered: ED Orders 10/05/18 19:19 EKG-12 Lead Stat 10/05/18 19:35 XR chest 1V Stat 10/05/18 20:16 Complete Blood Count AUTO DIFF Stat Comprehensive Metabolic Panel Stat Troponin & CK Cardiac Panel Stat 10/05/18 21:56 Troponin I Stat Vital Signs - 8 hr 10/05/18 19:10 10/05/18 19:30 10/05/18 20:55 Temperature 98.4 F Pulse Rate 81 74 89 Respiratory Rate 10 L 15 18 Blood Pressure 140/64 Blood Pressure [Right Arm] 153/79 H 129/72 Pulse Oximetry 100 99 97 10/05/18 21:30 10/05/18 22:00 Temperature Pulse Rate 76 76 Respiratory Rate 18 21 Blood Pressure Blood Pressure [Right Arm] 110/57 L 125/71 Pulse Oximetry 100 99 <Kong Figueroa DO - Last Filed: 10/05/18 22:15> Orders Ordered: ED Orders 10/05/18 19:19 EKG-12 Lead Stat 10/05/18 19:35 XR chest 1V Stat 10/05/18 20:16 Complete Blood Count AUTO DIFF Stat Comprehensive Metabolic Panel Stat Troponin & CK Cardiac Panel Stat 10/05/18 21:56 Troponin I Stat Vital Signs - 8 hr 10/05/18 19:10 10/05/18 19:30 10/05/18 20:55 Temperature 98.4 F Pulse Rate 81 74 89 Respiratory Rate 10 L 15 18 Blood Pressure 140/64 Blood Pressure [Right Arm] 153/79 H 129/72 Pulse Oximetry 100 99 97 10/05/18 21:30 10/05/18 22:00 Temperature Pulse Rate 76 76 Respiratory Rate 18 21 Blood Pressure Blood Pressure [Right Arm] 110/57 L 125/71 Pulse Oximetry 100 99 MDM - SOB/Dyspnea <RAO Garcia - Last Filed: 10/05/18 21:42> Lab Data Result diagrams: 10/05/18 20:16 10/05/18 20:16 Lab Results 10/05/18 10/05/18 Range/Units 20:16 20:16 WBC 10.6 (4.5-11.0) X10^3/uL RBC 4.35 (4.0-5.2) X10^6/uL Hgb 11.6 L (12.0-16.0) g/dL Hct 34.9 L (36-46) % MCV 80.2 (80-100) fL MCH 26.7 (26-34) PG MCHC 33.3 (30-36) % RDW 16.6 H (11.6-14.8) % Plt Count 247 (150-400) X10^3/uL Neut % (Auto) 67.3 (50-75) % Lymph % (Auto) 20.8 L (25-40) % [place] % (Auto) 9.3 (3-14) % Eos % (Auto) 2.1 (2-4) % Baso % (Auto) 0.5 (0-2) % Neut # (Auto) 7100 H (7324-2138) /uL Lymph # (Auto) 2200 (5335-5303) /uL [place] # (Auto) 1000 H (0-900) /uL Eos # (Auto) 200 (0-450) /uL Baso # (Auto) 100 (0-100) /uL Sodium 136 L (137-145) mmol/L Potassium 3.9 (3.4-5.1) mmol/L Chloride 103 (98-107) mmol/L Carbon Dioxide 26 (22-32) mmol/L BUN 12 (7-17) mg/dL Creatinine 1.00 (0.52-1.04) mg/dL Estimated GFR 58.5 L (>60) mL/min BUN/Creatinine Ratio 12.0 (6-22) Glucose 116 H (70-100) mg/dL Calcium 9.1 (8.4-10.2) mg/dL Total Bilirubin 0.1 L (0.2-1.3) mg/dL AST 34 (14-36) IU/L ALT 42 (9-52) IU/L Alkaline Phosphatase 54 (38-126) U/L Total Creatine Kinase 30 (30-135) U/L CK-MB (CK-2) TNP CK-MB (CK-2) Rel Index TNP Troponin I < 0.012 (0.01-0.034) ng/mL Total Protein 7.1 (6.3-8.2) g/dL Albumin 3.9 (3.5-5.0) g/dL Globulin 3.2 (1.7-4.1) g/dL Albumin/Globulin Ratio 1.2 (1.0-2.8) Imaging Data Chest x-ray: Radiologist's impression: [place] [address] XRay Report Signed Patient: Chaka Soto#: [id number] : 1965Acct:[id number] Age/Sex: 53 / FDate of Service: 10/05/18 Loc: Accession Number: [id number] Procedure: XR chest 1V Ordering Provider: Marcio Soriano PROCEDURE: XR CHEST 1V INDICATIONS: Chest pressure TECHNIQUE: One view of the chest was acquired. COMPARISON: [facility], , XR CHEST 1V, 01/31/2018, 6:10. FINDINGS: Surgical changes and devices: None. Lungs and pleura: Lungs are clear. No pleural effusions or pneumothorax. Mediastinum: Mediastinal contours appear normal. Heart size is normal. Bones and chest wall: No suspicious bony lesions. Overlying soft tissues appear unremarkable. IMPRESSION: No acute cardiopulmonary disease. Dictated by: Fadia Limon M.D. on 10/05/2018 at 20:10 Approved by: Fadia Limon M.D. on 10/05/2018 at 20:11 ECG Data Interpretation: EKG shows normal sinus rhythm with no ST elevation or depression . No ectopy. Ventricular rate is 77. Pr interval of 160. QRS duration of 90. QTC of 419. MDM Narrative Medical decision making narrative: Chest x-ray was obtained was unremarkable. EKG shows sinus rhythm with no ST elevation or depression. No ectopy. CBC and Chem panel were obtained were unremarkable. Two sets of cardiac enzymes were obtained and were unremarkable. Patient's symptoms have resolved. Listed side effects of dorzolamide and timolol list both chest pain and dyspnea. Symptoms the patient had earlier before is possible may be secondary to the medication administration. She is feeling much better at this timeframe. She is released home follow up with primary care provider. Follow up with Ophthalmology as scheduled. For any worsening symptoms return to the emergency room. <Kong Figueroa DO - Last Filed: 10/05/18 22:15> Lab Data Lab Results 10/05/18 10/05/18 Range/Units 20:16 20:16 WBC 10.6 (4.5-11.0) X10^3/uL RBC 4.35 (4.0-5.2) X10^6/uL Hgb 11.6 L (12.0-16.0) g/dL Hct 34.9 L (36-46) % MCV 80.2 (80-100) fL MCH 26.7 (26-34) PG MCHC 33.3 (30-36) % RDW 16.6 H (11.6-14.8) % Plt Count 247 (150-400) X10^3/uL Neut % (Auto) 67.3 (50-75) % Lymph % (Auto) 20.8 L (25-40) % [place] % (Auto) 9.3 (3-14) % Eos % (Auto) 2.1 (2-4) % Baso % (Auto) 0.5 (0-2) % Neut # (Auto) 7100 H (2615-9933) /uL Lymph # (Auto) 2200 (1143-0374) /uL [place] # (Auto) 1000 H (0-900) /uL Eos # (Auto) 200 (0-450) /uL Baso # (Auto) 100 (0-100) /uL Sodium 136 L (137-145) mmol/L Potassium 3.9 (3.4-5.1) mmol/L Chloride 103 (98-107) mmol/L Carbon Dioxide 26 (22-32) mmol/L BUN 12 (7-17) mg/dL Creatinine 1.00 (0.52-1.04) mg/dL Estimated GFR 58.5 L (>60) mL/min BUN/Creatinine Ratio 12.0 (6-22) Glucose 116 H (70-100) mg/dL Calcium 9.1 (8.4-10.2) mg/dL Total Bilirubin 0.1 L (0.2-1.3) mg/dL AST 34 (14-36) IU/L ALT 42 (9-52) IU/L Alkaline Phosphatase 54 (38-126) U/L Total Creatine Kinase 30 (30-135) U/L CK-MB (CK-2) TNP CK-MB (CK-2) Rel Index TNP Troponin I < 0.012 (0.01-0.034) ng/mL Total Protein 7.1 (6.3-8.2) g/dL Albumin 3.9 (3.5-5.0) g/dL Globulin 3.2 (1.7-4.1) g/dL Albumin/Globulin Ratio 1.2 (1.0-2.8) Discharge Plan Departure Patient Disposition: Home Clinical Impression: Chest tightness Instructions: DI for Atypical Chest Pain Activity Restrictions/Additional Instructions: Chest x-ray EKG and laboratory results today were unremarkable. Symptoms have resolved. Is possible that this is side effect of the medication was given to by Ophthalmology. Follow up with her primary care provider for further evaluation. Follow up with Ophthalmology as scheduled. For any worsening symptoms return to the emergency room. Prescriptions: No Action bisoprolol fumarate 5 MG tablet 5 mg OR Q DAY Qty: 0 RF: 0 levothyroxine [Synthroid] 25 MCG tablet 25 mcg OR Q DAY Qty: 0 RF: 0 warfarin [Coumadin] 2.5 mg Tablet 2.5 mg PO DAILY RF: 0 Referrals: Ana Ordonez MD [Primary Care Provider] - <Kong Figueroa DO - Last Filed: 10/05/18 22:15> Cosign ED Attending Brigetteature Attestation: I was available for consultation during this patient's emergency department encounter
[2018-10-05 20:41] LABS: Alanine Aminotransferase 42 IU/L (9-52); Albumin 3.9 g/dL (3.5-5.0); Albumin Globulin Ratio 1.2 (1.0-2.8); Alkaline Phosphatase 54 U/L (38-126); Aspartate Aminotransferase 34 IU/L (14-36); Bilirubin Total 0.1 mg/dL (0.2-1.3); Blood Urea Nitrogen 12 mg/dL (7-17); Calcium 9.1 mg/dL (8.4-10.2); Carbon Dioxide 26 mmol/L (22-32); Chloride 103 mmol/L (98-107); Creatine Kinase 30 U/L (30-135); Estimated Glomerular Filt Rate 58.5 mL/min (>60); Globulin 3.2 g/dL (1.7-4.1); Glucose 116 mg/dL (70-100); HEMOLYSIS < 15 (0-50); Potassium 3.9 mmol/L (3.4-5.1); Sodium 136 mmol/L (137-145); Total Protein 7.1 g/dL (6.3-8.2)
[2018-10-05 20:53] LABS: Troponin I < 0.012 ng/mL (0.01-0.034)
--- NOTE | 2018-10-05 21:41 | PC.NURSE ---
pt had an eye gtt at the dr, driving home with spouse, felt short of breath.
[2018-10-05 22:38] LABS: Troponin I < 0.012 ng/mL (0.01-0.034)
== END 2018-10-05 22:55 | disposition home or self-care (01) ==
PROVIDERS: Emergency Provider Nurse Practitioner Family; PCP Family Medicine
DX: R07.89 Other chest pain (principal); R06.02 Shortness of breath; R06.00 Dyspnea, unspecified
CPT/HCPCS: 36415; 71045; 80053; 82550; 84484; 85025; 93005; 93010; 93041; 99284; 99285

== ENCOUNTER 2018-11-07 07:56 | Emergency (ER) | payer OTHER, SELFPAY ==
[2018-11-07 08:00] VITALS: BP 115/96; PULSE 93; RESP 19; TEMP 36.9; O2SAT 100; BMI 36.6
[2018-11-07 08:05] VITALS: BP 115/96; PULSE 93; RESP 19; TEMP 36.9; O2SAT 100
--- NOTE | 2018-11-07 08:17 | ED.CHESTPAIN ---
HPI - Chest Pain General Chief Complaint: Chest Pain Stated Complaint: tightness in chest, a flutter, vaginal bleeding Time Seen by Provider: 11/07/18 08:16 Source: patient, RN notes reviewed and old records reviewed Mode of arrival: ambulatory Limitations: no limitations History of Present Illness HPI narrative: This is a 53-year-old female comes to the emergency department with complaints of tightness in her chest and fluttering. Patient states it was about 1:00 a.m. this morning. She states she felt a little sweaty. She felt a little short of breath. She denies any vomiting. She felt fluid nauseated today. She has had some loose stools this morning. She has had vaginal bleeding intermittently, she was started on progesterone last week and a half because of this and has scheduled for a hysteroscopy and a biopsy secondary to family history of uterine cancer. Patient has been taking her medication. She did take some lorazepam this morning which seemed to help. She came in because occasionally her potassium has been out of whack and she will have symptoms of it is low. She denies any syncope. No other new medication changes. Related Data Home Medications Medication Instructions Recorded Confirmed bisoprolol fumarate 5 mg PO DAILY #0 10/29/16 11/07/18 levothyroxine [Synthroid] 25 mcg PO DAILY #0 10/29/16 11/07/18 Vitamin C 1 tab PO DAILY 11/07/18 11/07/18 amlodipine 2.5 mg PO DAILY 11/07/18 11/07/18 aspirin 81 mg PO DAILY 11/07/18 11/07/18 lorazepam 0.5 mg PO Q6H PRN 11/07/18 11/07/18 mesalamine 3.6 g PO DAILY 11/07/18 11/07/18 norethindrone acetate See Rx Instructions .ROUTE .COMPLEX 11/07/18 11/07/18 potassium chloride 10 meq PO DAILY 11/07/18 11/07/18 prednisolone acetate See Rx Instructions .ROUTE .COMPLEX 11/07/18 11/07/18 rosuvastatin 10 mg PO DAILY 11/07/18 11/07/18 Allergies Allergy/AdvReac Type Severity Reaction Status Date / Time prochlorperazine Allergy Severe Swelling Verified 11/07/18 08:10 [From COMPAZINE] of Lip/Tongue/Throat ondansetron [From Zofran] Allergy Intermediate Swelling Verified 11/07/18 08:10 of Lip/Tongue/Throat epinephrine [EPINEPHRINE] AdvReac Unknown TACHY Verified 11/07/18 08:10 hydromorphone [From DILAUDID] AdvReac Unknown CAN'T Verified 11/07/18 08:10 BREATH Review of Systems Review of Systems ROS Unobtainable: All systems reviewed & are unremarkable except as noted in HPI and below Constitutional Denies chills and Denies fever(s) Eyes Reports loss of vision (chronic) Cardiovascular Denies chest pain, Denies chest pain at rest, Denies chest pain with activity, Reports diaphoresis, Denies syncope, Denies rapid heart rate, Denies edema, Reports irregular heart rhythm (fluttering feeling this morning), Denies lightheadedness, Reports palpitations, Reports dyspnea (resolved), Denies dyspnea on exertion and Denies orthopnea Respiratory Denies change in phlegm color, Denies chest congestion, Denies cough, Denies pain on inspiration, Reports dyspnea (resolved), Denies dyspnea on exertion and Denies wheezing Gastrointestinal Gastrointestinal: Denies abdominal pain, Denies change in bowel habits, Reports diarrhea (started this morning), Reports nausea and Denies vomiting Genitourinary Reports abnormal vaginal bleeding, Denies hematuria, Denies urinary frequency, Denies dysuria, Denies flank pain and Denies urinary urgency Integumentary/Breasts Denies rash and Denies unusual bruising Neurologic Denies syncope and Reports loss of vision (chronic) Endocrine Reports palpitations Allergic/Immunologic Denies wheezing [facility] Medical History (Updated 11/07/18 @ 10:56 by Corinne Lucio DO) Atrial flutter (Acute) Lupus (Acute) Ulcerative colitis (Acute) Decreased vision (Chronic) Family History (Updated 01/31/18 @ 06:10 by Palma Reddy DO) Father Coronary artery disease Family/Other Coronary artery disease Social History Smoking Status: Never smoker alcohol intake: never Family History (Updated 01/31/18 @ 06:10 by Palma Reddy DO) Father Coronary artery disease Family/Other Coronary artery disease Social History Smoking Status: Never smoker alcohol intake: never Exam Narrative Exam Narrative: GENERAL: Alert and oriented x three, moderately obese female in no acute distress. HEENT: Head normocephalic, atraumatic, face symmetric, moist mucous membranes, patient has decreased vision bilateral eyes. NECK: Supple, full range of motion CARDIOVASCULAR: Regular rate and rhythm without murmurs, rubs or gallops. No edema bilateral lower extremities. RESPIRATORY: Breath sounds equal bilaterally, no wheezes rales or rhonchi. ABDOMEN: Soft, nontender. Normoactive bowel sounds all 4 quadrants. No guarding or rebound, rigidity, no mass : No CVA tenderness EXTREMITIES: Normal range of motion, no clubbing or edema. Neurovascularly intact NEUROLOGICAL: Cranial nerves II through XII grossly intact. Moving all extremities SKIN: Warm, dry, no petechiae, no rashes or lesions. Initial Vital Signs Initial Vital Signs: Vital Signs Temperature 98.5 F 11/07/18 08:00 Pulse Rate 93 H 11/07/18 08:00 Respiratory Rate 19 11/07/18 08:00 Blood Pressure 115/96 H 11/07/18 08:00 Pulse Oximetry 100 11/07/18 08:00 Course Orders Ordered: ED Orders 11/07/18 11:23 Urinalysis and Microscopic Stat Discontinued Medications Sodium Chloride (Normal Saline 0.9%) 1,000 mls @ 1,000 mls/hr IV BOLUS ONE Stop: 11/07/18 09:15 Last Admin: 11/07/18 11:02 Dose: Not Given Vital Signs - 8 hr 11/07/18 11:21 Pulse Rate 86 Respiratory Rate 16 Blood Pressure 138/62 Pulse Oximetry 99 MDM - Chest Pain Medical Records Data Attestation: I reviewed the patient's medical records. Lab Data Attestation: I reviewed the patient's lab results. Result diagrams: 11/07/18 09:35 11/07/18 09:35 Lab Results 11/07/18 11/07/18 11/07/18 Range/Units 09:35 09:35 09:35 WBC 10.1 (4.5-11.0) X10^3/uL RBC 4.21 (4.0-5.2) X10^6/uL Hgb 11.1 L (12.0-16.0) g/dL Hct 34.4 L (36-46) % MCV 81.8 (80-100) fL MCH 26.3 (26-34) PG MCHC 32.2 (30-36) % RDW 15.2 H (11.6-14.8) % Plt Count 235 (150-400) X10^3/uL Neut % (Auto) 71.5 (50-75) % Lymph % (Auto) 19.9 L (25-40) % Nolan % (Auto) 6.7 (3-14) % Eos % (Auto) 1.5 L (2-4) % Baso % (Auto) 0.4 (0-2) % Neut # (Auto) 7200 H (4475-3928) /uL Lymph # (Auto) 2000 (8784-7341) /uL Nolan # (Auto) 700 (0-900) /uL Eos # (Auto) 100 (0-450) /uL Baso # (Auto) 0 (0-100) /uL PT 11.4 (10.1-12.7) SECONDS INR 1.0 (0.9-1.3) APTT 19 L D (26.4-36.2) SECONDS Sodium 137 (137-145) mmol/L Potassium 4.3 (3.4-5.1) mmol/L Chloride 104 (98-107) mmol/L Carbon Dioxide 26 (22-32) mmol/L BUN 13 (7-17) mg/dL Creatinine 0.90 (0.52-1.04) mg/dL Estimated GFR > 60.0 (>60) mL/min BUN/Creatinine Ratio 14.4 (6-22) Glucose 93 (70-100) mg/dL Calcium 8.8 (8.4-10.2) mg/dL Magnesium 1.8 (1.6-2.3) mg/dL Total Creatine Kinase 45 (30-135) U/L CK-MB (CK-2) TNP CK-MB (CK-2) Rel Index TNP Troponin I < 0.012 (0.01-0.034) ng/mL TSH (0.47-4.68) uIU/mL Urine Color Urine Appearance Urine pH (4.5-8.0) Ur Specific [place] (1.000-1.035) Urine Protein (Negative) Urine Glucose (UA) (Negative) g/dL Urine Ketones (NEGATIVE) Urine Occult Blood (Negative) Urine Nitrate (Negative) Urine Bilirubin (NEGATIVE) Urine Urobilinogen (0.2) E.U./dL Ur Leukocyte Esterase (NEGATIVE) Urine RBC (0-5/HPF) Urine WBC (0-5/HPF) Ur Squamous Epith Cells Urine Bacteria (None) Ur Culture Indicated? 11/07/18 11/07/18 Range/Units 09:35 11:23 WBC (4.5-11.0) X10^3/uL RBC (4.0-5.2) X10^6/uL Hgb (12.0-16.0) g/dL Hct (36-46) % MCV (80-100) fL MCH (26-34) PG MCHC (30-36) % RDW (11.6-14.8) % Plt Count (150-400) X10^3/uL Neut % (Auto) (50-75) % Lymph % (Auto) (25-40) % Nolan % (Auto) (3-14) % Eos % (Auto) (2-4) % Baso % (Auto) (0-2) % Neut # (Auto) (9622-2025) /uL Lymph # (Auto) (5229-5547) /uL Nolan # (Auto) (0-900) /uL Eos # (Auto) (0-450) /uL Baso # (Auto) (0-100) /uL PT (10.1-12.7) SECONDS INR (0.9-1.3) APTT (26.4-36.2) SECONDS Sodium (137-145) mmol/L Potassium (3.4-5.1) mmol/L Chloride (98-107) mmol/L Carbon Dioxide (22-32) mmol/L BUN (7-17) mg/dL Creatinine (0.52-1.04) mg/dL Estimated GFR (>60) mL/min BUN/Creatinine Ratio (6-22) Glucose (70-100) mg/dL Calcium (8.4-10.2) mg/dL Magnesium (1.6-2.3) mg/dL Total Creatine Kinase (30-135) U/L CK-MB (CK-2) CK-MB (CK-2) Rel Index Troponin I (0.01-0.034) ng/mL TSH 2.49 (0.47-4.68) uIU/mL Urine Color Yellow Urine Appearance Sl cloudy Urine pH 6.5 (4.5-8.0) Ur Specific [place] 1.025 (1.000-1.035) Urine Protein Negative (Negative) Urine Glucose (UA) Negative (Negative) g/dL Urine Ketones Negative (NEGATIVE) Urine Occult Blood 3+ H (Negative) Urine Nitrate Negative (Negative) Urine Bilirubin Negative (NEGATIVE) Urine Urobilinogen 0.2 (0.2) E.U./dL Ur Leukocyte Esterase Negative (NEGATIVE) Urine RBC 10-30/hpf H (0-5/HPF) Urine WBC 1-5/hpf (0-5/HPF) Ur Squamous Epith Cells 5-10 /hpf H Urine Bacteria Moderate (10-30) H (None) Ur Culture Indicated? Cult not indicated Imaging Data Chest x-ray: Radiologist's impression: [address] [address] XRay Report Signed Patient: Chaka Soto#: [id number] : 1965Acct:[id number] Age/Sex: 53 / FDate of Service: 11/07/18 Loc: ED Accession Number: [id number] Procedure: XR chest 1V Ordering Provider: Corinne Lucio D.O. PROCEDURE: XR CHEST 1V INDICATIONS: afluttering in chest/tightness TECHNIQUE: One view of the chest was acquired. COMPARISON: [facility], , XR CHEST 1V, 10/05/2018, 19:40. FINDINGS: Surgical changes and devices: None. Lungs and pleura: Lungs are clear. No pleural effusions or pneumothorax. Mediastinum: Mediastinal contours appear normal. Heart size is normal. Bones and chest wall: No suspicious bony lesions. Overlying soft tissues appear unremarkable. IMPRESSION: Stable cardiopulmonary examination of the chest without acute disease. Dictated by: Stanley Norton M.D. on 11/07/2018 at 8:33 Approved by: Stanley Norton M.D. on 11/07/2018 at 8:34 ECG Data Attestation: I personally reviewed and interpreted this ECG as follows: Interpretation: Sinus rhythm ventricular rate 82 P are 186 QRS 89 and QTC of [address] changes appreciated. Some nonspecific flattening. Patient has an EKG from 10/05/2018 that appears the same. [facility] Narrative Medical decision making narrative: Patient comes in with complaint of fluttering palpitation like feeling in her chest. She has a history of atrial flutter. No changes on telemetry or her EKG. Patient had negative troponin, lab work including TSH, CBC, potassium as well as renal function are normal range. Patient's potassium has improved since her last. She was seen at [facility] for similar symptoms and these were used for comparison as well as her EKG from there and here on her last visit. Patient has had 3 visits for similar symptoms. Discussed with patient she we were not able to get an IV but she was able to orally hydrate the department and was feeling better and felt comfortable returning home. We did discuss possibility of PE although this is lower on my differential. Patient's vital signs are normal, she has had palpitations but does have issues with cardiac arrhythmias. She does not have any other high risk factors at this time although she was recently started on progesterone. We did discuss that this could make her feel nauseated. She was started because of vaginal bleeding. She has follow-up in next week for this as well. Discharge Plan Departure Patient Disposition: Home Clinical Impression: Palpitations Discharge Date/Time: 11/07/18 11:21 Interventions: ED Discharge Assessment Last Done: 11/07/18 11:21 Instructions: DI for Palpitations Activity Restrictions/Additional Instructions: Follow-up with your primary care in the next 2-3 days for recheck. Continue home medications as prescribed. Return to the emergency department for worsening symptoms, passing out, sudden severe chest pain, new shortness of breath, persistent vomiting or other new or concerning symptoms. Prescriptions: No Action bisoprolol fumarate 5 MG tablet 5 mg PO DAILY Qty: 0 RF: 0 levothyroxine [Synthroid] 25 MCG tablet 25 mcg PO DAILY Qty: 0 RF: 0 lorazepam 0.5 mg tablet 0.5 mg PO Q6H PRN (Reason: Anxiety) RF: 0 amlodipine 2.5 mg tablet 2.5 mg PO DAILY RF: 0 potassium chloride 10 mEq tablet extended release 10 meq PO DAILY RF: 0 prednisolone acetate 1 % drops,suspension See Rx Instructions .ROUTE .COMPLEX RF: 0 norethindrone acetate 5 mg tablet See Rx Instructions .ROUTE .COMPLEX RF: 0 rosuvastatin 10 mg tablet 10 mg PO DAILY RF: 0 mesalamine 1.2 gram tablet,delayed release (DR/EC) 3.6 g PO DAILY RF: 0 aspirin 81 mg Tablet,Delayed Release (Dr/Ec) 81 mg PO DAILY RF: 0 Vitamin C 1 tab PO DAILY RF: 0 Referrals: Ana Ordonez MD [Primary Care Provider] -
--- NOTE | 2018-11-07 08:20 | ED_ITS ---
HPI - Chest Pain General Chief Complaint: Chest Pain Stated Complaint: tightness in chest, a flutter, vaginal bleeding Time Seen by Provider: 11/07/18 08:16 Source: patient, RN notes reviewed and old records reviewed Mode of arrival: ambulatory Limitations: no limitations History of Present Illness HPI narrative: This is a 53-year-old female comes to the emergency department with complaints of tightness in her chest and fluttering. Patient states it was about 1:00 a.m. this morning. She states she felt a little sweaty. She felt a little short of breath. She denies any vomiting. She felt fluid nauseated to day. She has had some loose stools this morning. She has had vaginal bleeding intermittently, she was started on progesterone last week and a half because of this and has scheduled for a hysteroscopy and a biopsy secondary to family history of uterine cancer. Patient has been taking her medication. She did take some lorazepam this morning which seemed to help. She came in because occasionally her potassium has been out of whack and she will have symptoms of it is low. She denies any syncope. No other new medication changes. Related Data Home Medications Medication Instructions Recorded Confirmed bisoprolol fumarate 5 mg PO DAILY #0 10/29/16 11/07/18 levothyroxine [Synthroid] 25 mcg PO DAILY #0 10/29/16 11/07/18 Vitamin C 1 tab PO DAILY 11/07/18 11/07/18 amlodipine 2.5 mg PO DAILY 11/07/18 11/07/18 aspirin 81 mg PO DAILY 11/07/18 11/07/18 lorazepam 0.5 mg PO Q6H PRN 11/07/18 11/07/18 mesalamine 3.6 g PO DAILY 11/07/18 11/07/18 norethindrone acetate See Rx Instructions .ROUTE .COMPLEX 11/07/18 11/07/18 potassium chloride 10 meq PO DAILY 11/07/18 11/07/18 prednisolone acetate See Rx Instructions .ROUTE .COMPLEX 11/07/18 11/07/18 rosuvastatin 10 mg PO DAILY 11/07/18 11/07/18 Allergies Allergy/AdvReac Type Severity Reaction Status Date / Time prochlorperazine Allergy Severe Swelling Verified 11/07/18 08:10 [From COMPAZINE] of Lip/Tongue/Throat ondansetron [From Zofran] Allergy Intermediate Swelling Verified 11/07/18 08:10 of Lip/Tongue/Throat epinephrine [EPINEPHRINE] AdvReac Unknown TACHY Verified 11/07/18 08:10 hydromorphone [From DILAUDID] AdvReac Unknown CAN'T Verified 11/07/18 08:10 BREATH Review of Systems Review of Systems ROS Unobtainable: All systems reviewed & are unremarkable except as noted in HPI and below Constitutional Denies chills and Denies fever(s) Eyes Reports loss of vision (chronic) Cardiovascular Denies chest pain, Denies chest pain at rest, Denies chest pain with activity, Reports diaphoresis, Denies syncope, Denies rapid heart rate, Denies edema, Reports irregular heart rhythm (fluttering feeling this morning), Denies lightheadedness, Reports palpitations, Reports dyspnea (resolved), Denies dyspnea on exertion and Denies orthopnea Respiratory Denies change in phlegm color, Denies chest congestion, Denies cough, Denies pain on inspiration, Reports dyspnea (resolved), Denies dyspnea on exertion and Denies wheezing Gastrointestinal Gastrointestinal: Denies abdominal pain, Denies change in bowel habits, Reports diarrhea (started this morning), Reports nausea and Denies vomiting Genitourinary Reports abnormal vaginal bleeding, Denies hematuria, Denies urinary frequency, Denies dysuria, Denies flank pain and Denies urinary urgency Integumentary/Breasts Denies rash and Denies unusual bruising Neurologic Denies syncope and Reports loss of vision (chronic) Endocrine Reports palpitations Allergic/Immunologic Denies wheezing COUNT INCLUDES THE [facility] Medical History (Updated 11/07/18 @ 10:56 by Corinne Lucio DO) Atrial flutter (Acute) Lupus (Acute) Ulcerative colitis (Acute) Decreased vision (Chronic) Family History (Updated 01/31/18 @ 06:10 by Palma Reddy DO) Father Coronary artery disease Family/Other Coronary artery disease Social History Smoking Status: Never smoker alcohol intake: never Family History (Updated 01/31/18 @ 06:10 by Palma Reddy DO) Father Coronary artery disease Family/Other Coronary artery disease Social History Smoking Status: Never smoker alcohol intake: never Exam Narrative Exam Narrative: GENERAL: Alert and oriented x three, moderately obese female in no acute distress. HEENT: Head normocephalic, atraumatic, face symmetric, moist mucous membranes, patient has decreased vision bilateral eyes. NECK: Supple, full range of motion CARDIOVASCULAR: Regular rate and rhythm without murmurs, rubs or gallops. No edema bilateral lower extremities. RESPIRATORY: Breath sounds equal bilaterally, no wheezes rales or rhonchi. ABDOMEN: Soft, nontender. Normoactive bowel sounds all 4 quadrants. No g uarding or rebound, rigidity, no mass : No CVA tenderness EXTREMITIES: Normal range of motion, no clubbing or edema. Neurovascularly intact NEUROLOGICAL: Cranial nerves II through XII grossly intact. Moving all extremities SKIN: Warm, dry, no petechiae, no rashes or lesions. Initial Vital Signs Initial Vital Signs: Vital Signs Temperature 98.5 F 11/07/18 08:00 Pulse Rate 93 H 11/07/18 08:00 Respiratory Rate 19 11/07/18 08:00 Blood Pressure 115/96 H 11/07/18 08:00 Pulse Oximetry 100 11/07/18 08:00 Course Orders Ordered: ED Orders 11/07/18 11:23 Urinalysis and Microscopic Stat Discontinued Medications Sodium Chloride (Normal Saline 0.9%) 1,000 mls @ 1,000 mls/hr IV BOLUS ONE Stop: 11/07/18 09:15 Last Admin: 11/07/18 11:02 Dose: Not Given Vital Signs - 8 hr 11/07/18 11:21 Pulse Rate 86 Respiratory Rate 16 Blood Pressure 138/62 Pulse Oximetry 99 MDM - Chest Pain Medical Records Data Attestation: I reviewed the patient's medical records. Lab Data Attestation: I reviewed the patient's lab results. Result diagrams: 11/07/18 09:35 11/07/18 09:35 Lab Results 11/07/18 11/07/18 11/07/18 Range/Units 09:35 09:35 09:35 WBC 10.1 (4.5-11.0) X10^3/uL RBC 4.21 (4.0-5.2) X10^6/uL Hgb 11.1 L (12.0-16.0) g/dL Hct 34.4 L (36-46) % MCV 81.8 (80-100) fL MCH 26.3 (26-34) PG MCHC 32.2 (30-36) % RDW 15.2 H (11.6-14.8) % Plt Count 235 (150-400) X10^3/uL Neut % (Auto) 71.5 (50-75) % Lymph % (Auto) 19.9 L (25-40) % [place] % (Auto) 6.7 (3-14) % Eos % (Auto) 1.5 L (2-4) % Baso % (Auto) 0.4 (0-2) % Neut # (Auto) 7200 H (8940-7277) /uL Lymph # (Auto) 2000 (6093-8748) /uL [place] # (Auto) 700 (0-900) /uL Eos # (Auto) 100 (0-450) /uL Baso # (Auto) 0 (0-100) /uL PT 11.4 (10.1-12.7) SECONDS INR 1.0 (0.9-1.3) APTT 19 L D (26.4-36.2) SECONDS Sodium 137 (137-145) mmol/L Potassium 4.3 (3.4-5.1) mmol/L Chloride 104 (98-107) mmol/L Carbon Dioxide 26 (22-32) mmol/L BUN 13 (7-17) mg/dL Creatinine 0.90 (0.52-1.04) mg/dL Estimated GFR > 60.0 (>60) mL/min BUN/Creatinine Ratio 14.4 (6-22) Glucose 93 (70-100) mg/dL Calcium 8.8 (8.4-10.2) mg/dL Magnesium 1.8 (1.6-2.3) mg/dL Total Creatine Kinase 45 (30-135) U/L CK-MB (CK-2) TNP CK-MB (CK-2) Rel Index TNP Troponin I < 0.012 (0.01-0.034) ng/mL TSH (0.47-4.68) uIU/mL Urine Color Urine Appearance Urine pH (4.5-8.0) Ur Specific Holder (1.000-1.035) Urine Protein (Negative) Urine Glucose (UA) (Negative) g/dL Urine Ketones (NEGATIVE) Urine Occult Blood (Negative) Urine Nitrate (Negative) Urine Bilirubin (NEGATIVE) Urine Urobilinogen (0.2) E.U./dL Ur Leukocyte Esterase (NEGATIVE) Urine RBC (0-5/HPF) Urine WBC (0-5/HPF) Ur Squamous Epith Cells Urine Bacteria (None) Ur Culture Indicated? 11/07/18 11/07/18 Range/Units 09:35 11:23 WBC (4.5-11.0) X10^3/uL RBC (4.0-5.2) X10^6/uL Hgb (12.0-16.0) g/dL Hct (36-46) % MCV (80-100) fL MCH (26-34) PG MCHC (30-36) % RDW (11.6-14.8) % Plt Count (150-400) X10^3/uL Neut % (Auto) (50-75) % Lymph % (Auto) (25-40) % [place] % (Auto) (3-14) % Eos % (Auto) (2-4) % Baso % (Auto) (0-2) % Neut # (Auto) (5608-8359) /uL Lymph # (Auto) (1785-0079) /uL [place] # (Auto) (0-900) /uL Eos # (Auto) (0-450) /uL Baso # (Auto) (0-100) /uL PT (10.1-12.7) SECONDS INR (0.9-1.3) APTT (26.4-36.2) SECONDS Sodium (137-145) mmol/L Potassium (3.4-5.1) mmol/L Chloride (98-107) mmol/L Carbon Dioxide (22-32) mmol/L BUN (7-17) mg/dL Creatinine (0.52-1.04) mg/dL Estimated GFR (>60) mL/min BUN/Creatinine Ratio (6-22) Glucose (70-100) mg/dL Calcium (8.4-10.2) mg/dL Magnesium (1.6-2.3) mg/dL Total Creatine Kinase (30-135) U/L CK-MB (CK-2) CK-MB (CK-2) Rel Index Troponin I (0.01-0.034) ng/mL TSH 2.49 (0.47-4.68) uIU/mL Urine Color Yellow Urine Appearance Sl cloudy Urine pH 6.5 (4.5-8.0) Ur Specific Holder 1.025 (1.000-1.035) Urine Protein Negative (Negative) Urine Glucose (UA) Negative (Negative) g/dL Urine Ketones Negative (NEGATIVE) Urine Occult Blood 3+ H (Negative) Urine Nitrate Negative (Negative) Urine Bilirubin Negative (NEGATIVE) Urine Urobilinogen 0.2 (0.2) E.U./dL Ur Leukocyte Esterase Negative (NEGATIVE) Urine RBC 10-30/hpf H (0-5/HPF) Urine WBC 1-5/hpf (0-5/HPF) Ur Squamous Epith Cells 5-10 /hpf H Urine Bacteria Moderate (10-30) H (None) Ur Culture Indicated? Cult not indicated Imaging Data Chest x-ray: Radiologist's impression: [address] [address] XRay Report Signed Patient: Chaka Soto#: [id number] : 1965Acct:[id number] Age/Sex: 53 / FDate of Service: 11/07/18 Loc: ED Accession Number: [id number] Procedure: XR chest 1V Ordering Provider: Corinne Lucio D.O. PROCEDURE: XR CHEST 1V INDICATIONS: afluttering in chest/tightness TECHNIQUE: One view of the chest was acquired. COMPARISON: [facility], , XR CHEST 1V, 10/05/2018, 19:40. FINDINGS: Surgical changes and devices: None. Lungs and pleura: Lungs are clear. No pleural effusions or pneumothorax. Mediastinum: Mediastinal contours appear normal. Heart size is normal. Bones and chest wall: No suspicious bony lesions. Overlying soft tissues appear unremarkable. IMPRESSION: Stable cardiopulmonary examination of the chest without acute disease. Dictated by: Stanley Norton M.D. on 11/07/2018 at 8:33 Approved by: Stanley Norton M.D. on 11/07/2018 at 8:34 ECG Data Attestation: I personally reviewed and interpreted this ECG as follows: Interpretation: Sinus rhythm ventricular rate 82 P are 186 QRS 89 and QTC of [address] changes appreciated. Some nonspecific flattening. Patient has an EKG from 10/05/2018 that appears the same. [facility] Narrative Medical decision making narrative: Patient comes in with complaint of fluttering palpitation like feeling in her chest. She has a history of atrial flutter. No changes on telemetry or her EKG. Patient had negative troponin, lab work including TSH, CBC, potassium as well as renal function are normal range. Patient's potassium has improved since her last. She was seen at [facility] for si milar symptoms and these were used for comparison as well as her EKG from there and here on her last visit. Patient has had 3 visits for similar symptoms. Discussed with patient she we were not able to get an IV but she was able to orally hydrate the department and was feeling better and felt comfortable returning home. We did discuss possibility of PE although this is lower on my differential. Patient's vital signs are normal, she has had palpitations but does have issues with cardiac arrhythmias. She does not have any other high risk factors at this time although she was recently started on progesterone. We did discuss that this could make her feel nauseated. She was started because of vaginal bleeding. She has follow-up in next week for this as well. Discharge Plan Departure Patient Disposition: Home Clinical Impression: Palpitations Discharge Date/Time: 11/07/18 11:21 Interventions: ED Discharge Assessment Last Done: 11/07/18 11:21 Instructions: DI for Palpitations Activity Restrictions/Additional Instructions: Follow-up with your primary care in the next 2-3 days for recheck. Continue home medications as prescribed. Return to the emergency department for worsening symptoms, passing out, sudden severe chest pain, new shortness of breath, persistent vomiting or other new or concerning symptoms. Prescriptions: No Action bisoprolol fumarate 5 MG tablet 5 mg PO DAILY Qty: 0 RF: 0 levothyroxine [Synthroid] 25 MCG tablet 25 mcg PO DAILY Qty: 0 RF: 0 lorazepam 0.5 mg tablet 0.5 mg PO Q6H PRN (Reason: Anxiety) RF: 0 amlodipine 2.5 mg tablet 2.5 mg PO DAILY RF: 0 potassium chloride 10 mEq tablet extended release 10 meq PO DAILY RF: 0 prednisolone acetate 1 % drops,suspension See Rx Instructions .ROUTE .COMPLEX RF: 0 norethindrone acetate 5 mg tablet See Rx Instructions .ROUTE .COMPLEX RF: 0 rosuvastatin 10 mg tablet 10 mg PO DAILY RF: 0 mesalamine 1.2 gram tablet,delayed release (DR/EC) 3.6 g PO DAILY RF: 0 aspirin 81 mg Tablet,Delayed Release (Dr/Ec) 81 mg PO DAILY RF: 0 Vitamin C 1 tab PO DAILY RF: 0 Referrals: Ana Ordonez MD [Primary Care Provider] -
[2018-11-07 09:49] LABS: Prothrombin Time 11.4 SECONDS (10.1-12.7)
[2018-11-07 09:52] LABS: PTT Partial Thromboplastin Tim 19 SECONDS (26.4-36.2)
[2018-11-07 09:54] LABS: Add Manual Diff / Slide Review NO; Basophils Absolute Auto 0 /uL (0-100); Basophils Percent Auto 0.4 % (0-2); Eosinophils Absolute Auto 100 /uL (0-450); Eosinophils Percent Auto 1.5 % (2-4); Hematocrit 34.4 % (36-46); Hemoglobin 11.1 g/dL (12.0-16.0); Lymphocytes Absolute Auto 2000 /uL (1100-4500); Lymphocytes Percent Auto 19.9 % (25-40); Mean Corpuscular HGB Conc 32.2 % (30-36); Mean Corpuscular Hemoglobin 26.3 PG (26-34); Mean Corpuscular Volume 81.8 fL (80-100); Monocytes Absolute Auto 700 /uL (0-900); Monocytes Percent Auto 6.7 % (3-14); Neutrophils Absolute Auto 7200 /uL (1500-7000); Neutrophils Percent Auto 71.5 % (50-75); Platelet Count 235 X10^3/uL (150-400); Red Blood Cell Count 4.21 X10^6/uL (4.0-5.2); Red Cell Distribution Width 15.2 % (11.6-14.8); White Blood Cell Count 10.1 X10^3/uL (4.5-11.0)
[2018-11-07 09:57] LABS: BUN Creatinine Ratio 14.4 (6-22); Blood Urea Nitrogen 13 mg/dL (7-17); Calcium 8.8 mg/dL (8.4-10.2); Carbon Dioxide 26 mmol/L (22-32); Chloride 104 mmol/L (98-107); Creatine Kinase 45 U/L (30-135); Estimated Glomerular Filt Rate > 60.0 mL/min (>60); Glucose 93 mg/dL (70-100); HEMOLYSIS 16 (0-50); Magnesium 1.8 mg/dL (1.6-2.3); Potassium 4.3 mmol/L (3.4-5.1); Sodium 137 mmol/L (137-145)
[2018-11-07 10:09] LABS: Troponin I < 0.012 ng/mL (0.01-0.034)
[2018-11-07 10:36] LABS: Thyroid Stimulating Hormone 2.49 uIU/mL (0.47-4.68)
--- NOTE | 2018-11-07 11:01 | PC.NURSE ---
Patient reports feeling fluttering in her chest this morning. Patient concerned about dehydration, has been nauseated some vomiting.
[2018-11-07 11:21] VITALS: BP 138/62; PULSE 86; RESP 16; O2SAT 99
[2018-11-07 11:30] LABS: Appearance Urine UA SL CLOUDY; Bilirubin Urine UA NEGATIVE (NEGATIVE); Color Urine UA YELLOW; Glucose Urine UA NEGATIVE (Negative); Ketones Urine UA NEGATIVE (NEGATIVE); Leukocyte Esterase Urine UA NEGATIVE (NEGATIVE); Nitrite Urine UA NEGATIVE (Negative); Occult Blood Urine UA 3+ (Negative); Protein Urine UA NEGATIVE (Negative); Specific Gravity Urine UA 1.025 (1.000-1.035); Urobilinogen Urine UA 0.2 E.U./dL (0.2); pH Urine UA 6.5 (4.5-8.0)
[2018-11-07 11:58] LABS: Bacteria Urine Moderate (10-30); Culture Indicated Urine Cult Not Indicated; RBC Urine 10-30/HPF (0-5/HPF); Squamous Epithelial Cell Urine 5-10 /HPF; WBC Urine 1-5/HPF (0-5/HPF)
== END 2018-11-07 11:21 | disposition home or self-care (01) ==
PROVIDERS: Emergency Provider Emergency Medicine; PCP Family Medicine
DX: R00.2 Palpitations (principal); R07.9 Chest pain, unspecified
CPT/HCPCS: 36591; 71045; 80048; 81001; 82550; 83735; 84443; 84484; 85025; 85610; 85730; 93005; 99283; 99284

== ENCOUNTER 2018-12-03 12:30 | Emergency (ER) | payer OTHER, SELFPAY ==
[2018-12-03 12:34] VITALS: BP 145/88; PULSE 89; RESP 18; TEMP 36.6; O2SAT 100; BMI 37.4
--- NOTE | 2018-12-03 13:45 | ED.FEMALEGU ---
HPI - Female Genitourinary <Corinne Marie, LIVESTOCK AGENT-BC - Last Filed: 12/03/18 16:48> General Chief complaint: Urogenital-Female Stated complaint: [employer] surgery, having complications Time Seen by Provider: 12/03/18 13:00 Source: patient and family Mode of arrival: ambulatory Limitations: no limitations History of Present Illness HPI Narrative: The patient is a 53-year-old nonsmoker who presents with for chief complaint of fever. The patient had a hysteroscopy with morcellator on 11/[address] Her surgeon was Dr. Rivera. Two days ago she started having fevers up to 101 or 102. She was seen by her primary care yesterday, who sent her to [facility] emergency department for fluids and further workup. She states she received IV fluids as well as IV Tylenol. She had a fever of 101 and again last night. She has not taken anything for pain or fever today. She does has have a history of IBS and states diarrhea is consistent for her. She denies any abnormal vaginal discharge. She states that her bleeding at this point is to be expected and is under control. She spoke with the on-call surgeon from [facility], who states she needed to come to the emergency department for evaluation. Records from [facility] illustrate a visit for chief complaint of a headache. she was afebrile throughout her stay at [facility]. Related Data Home Medications Medication Instructions Recorded Confirmed bisoprolol fumarate 5 mg PO DAILY #0 10/29/16 11/07/18 levothyroxine [Synthroid] 25 mcg PO DAILY #0 10/29/16 11/07/18 Vitamin C 1 tab PO DAILY 11/07/18 11/07/18 amlodipine 2.5 mg PO DAILY 11/07/18 11/07/18 aspirin 81 mg PO DAILY 11/07/18 11/07/18 lorazepam 0.5 mg PO Q6H PRN 11/07/18 11/07/18 mesalamine 3.6 g PO DAILY 11/07/18 11/07/18 norethindrone acetate See Rx Instructions .ROUTE .COMPLEX 11/07/18 11/07/18 potassium chloride 10 meq PO DAILY 11/07/18 11/07/18 prednisolone acetate See Rx Instructions .ROUTE .COMPLEX 11/07/18 11/07/18 rosuvastatin 10 mg PO DAILY 11/07/18 11/07/18 Previous Rx's Medication Instructions Recorded nitrofurantoin monohyd/m-cryst 100 mg PO BID #20 cap 12/03/18 [Macrobid] Allergies Allergy/AdvReac Type Severity Reaction Status Date / Time prochlorperazine Allergy Severe Swelling Verified 11/07/18 08:10 [From COMPAZINE] of Lip/Tongue/Throat ondansetron [From Zofran] Allergy Intermediate Swelling Verified 11/07/18 08:10 of Lip/Tongue/Throat epinephrine [EPINEPHRINE] AdvReac Unknown TACHY Verified 11/07/18 08:10 hydromorphone [From DILAUDID] AdvReac Unknown CAN'T Verified 11/07/18 08:10 BREATH Review of Systems <VEELIA Painter - Last Filed: 12/03/18 16:48> Review of Systems GENERAL: Denies chills, fatigue, malaise, fever, sweats. HEENT: Denies sinus pain, ear pain, sore throat, difficulty swallowing, dizziness. RESPIRATORY: Denies dyspnea, cough, wheezing, hemoptysis, sputum. CARDIOVASCULAR: Denies chest pain, palpitations, orthopnea, edema, GASTROINTESTINAL: See HPI : See HPI MUSCULOSKELETAL: denies weakness, joint pain, or bony pain SKIN: Denies rash, skin lesions, or other NEUROLOGIC: Denies weakness, headache, numbness, change in speech, confusion, seizures, incoordination. PSYCHIATRIC: No concerning psychosocial issues. 12 point review of systems is negative except for those stated above PFSH <EVELIA Painter - Last Filed: 12/03/18 16:48> Medical History (Updated 12/03/18 @ 16:37 by EVELIA Painter) Atrial flutter (Acute) Lupus (Acute) Ulcerative colitis (Acute) Decreased vision (Chronic) Family History (Updated 01/31/18 @ 06:10 by Palma Reddy DO) Father Coronary artery disease Family/Other Coronary artery disease Social History Smoking Status: Never smoker alcohol intake: never Exam <EEVLIA Painter - Last Filed: 12/03/18 16:48> Narrative Exam Narrative: GENERAL: This is a well-nourished, well-developed patient, lying on her side HEAD: Atraumatic. Normocephalic. No temporal or scalp tenderness. EYES: Pupils equal round and reactive. Extraocular motions intact. No scleral icterus. No injection or drainage. ENT: Nose without bleeding, purulent drainage or septal hematoma. Throat without erythema, tonsillar hypertrophy or exudate. Uvula midline. Airway patent. NECK: Trachea midline. No JVD or lymphadenopathy. Supple, nontender, no meningeal signs. CARDIOVASCULAR: Regular rate and rhythm without murmurs, gallops, or rubs. RESPIRATORY: Clear to auscultation. Breath sounds equal bilaterally. No wheezes, rales, or rhonchi. No cough. No increased respiratory effort. GASTROINTESTINAL: Abdomen soft, suprapubic tenderness diffusely to palpation, nondistended. No hepato-splenomegaly, or palpable masses. No guarding. active bowel sounds all 4 quadrants EXTREMITIES: No clubbing, cyanosis, or edema. No joint tenderness, effusion, or edema noted. BACK: Nontender without deformity or crepitance. No flank tenderness. NEURO: AOx3. SKIN: No rash or erythema. Initial Vital Signs Initial Vital Signs: Vital Signs Temperature 97.9 F 12/03/18 12:34 Pulse Rate 89 12/03/18 12:34 Respiratory Rate 18 12/03/18 12:34 Blood Pressure 145/88 H 12/03/18 12:34 Pulse Oximetry 100 12/03/18 12:34 <Palma Reddy DO - Last Filed: 12/04/18 10:31> Initial Vital Signs Initial Vital Signs: Vital Signs Temperature 97.9 F 12/03/18 12:34 Pulse Rate 89 12/03/18 12:34 Respiratory Rate 18 12/03/18 12:34 Blood Pressure 145/88 H 12/03/18 12:34 Pulse Oximetry 100 12/03/18 12:34 Course <EVELIA Painter - Last Filed: 12/03/18 16:48> Orders Ordered: Discontinued Medications Diphenhydramine HCl (Benadryl) 50 mg IV NOW ONE Stop: 12/03/18 14:37 Last Admin: 12/03/18 14:50 Dose: 50 mg Sodium Chloride (Normal Saline 0.9%) 1,000 mls @ 1,000 mls/hr IV BOLUS ONE Stop: 12/03/18 14:15 Last Infusion: 12/03/18 16:14 Dose: 0 mls/hr Admin: 12/03/18 14:02 Dose: 1,000 mls/hr Ketorolac Tromethamine (Toradol) 15 mg IV NOW ONE Stop: 12/03/18 13:17 Last Admin: 12/03/18 14:01 Dose: 15 mg Methylprednisolone (Solu-Medrol 125 Mg Vial) 125 mg IV NOW ONE Stop: 12/03/18 14:37 Last Admin: 12/03/18 14:54 Dose: 125 mg Vital Signs - 8 hr 12/03/18 12:34 12/03/18 15:01 12/03/18 15:50 Temperature 97.9 F Pulse Rate 89 72 72 Respiratory Rate 18 16 16 Blood Pressure 145/88 H Blood Pressure [Right Arm] 155/74 H 151/73 H Pulse Oximetry 100 100 100 12/03/18 16:32 Temperature 98.1 F Pulse Rate 76 Respiratory Rate 16 Blood Pressure Blood Pressure [Right Arm] 137/67 Pulse Oximetry 98 <Palma Reddy, DO - Last Filed: 12/04/18 10:31> Orders Ordered: Discontinued Medications Diphenhydramine HCl (Benadryl) 50 mg IV NOW ONE Stop: 12/03/18 14:37 Last Admin: 12/03/18 14:50 Dose: 50 mg Sodium Chloride (Normal Saline 0.9%) 1,000 mls @ 1,000 mls/hr IV BOLUS ONE Stop: 12/03/18 14:15 Last Infusion: 12/03/18 16:14 Dose: 0 mls/hr Admin: 12/03/18 14:02 Dose: 1,000 mls/hr Ketorolac Tromethamine (Toradol) 15 mg IV NOW ONE Stop: 12/03/18 13:17 Last Admin: 12/03/18 14:01 Dose: 15 mg Methylprednisolone (Solu-Medrol 125 Mg Vial) 125 mg IV NOW ONE Stop: 12/03/18 14:37 Last Admin: 12/03/18 14:54 Dose: 125 mg Vital Signs - 8 hr 12/03/18 12:34 12/03/18 15:01 12/03/18 15:50 Temperature 97.9 F Pulse Rate 89 72 72 Respiratory Rate 18 16 16 Blood Pressure 145/88 H Blood Pressure [Right Arm] 155/74 H 151/73 H Pulse Oximetry 100 100 100 12/03/18 16:32 Temperature 98.1 F Pulse Rate 76 Respiratory Rate 16 Blood Pressure Blood Pressure [Right Arm] 137/67 Pulse Oximetry 98 MDM - Female Genitourinary <Corinnepaul Rasheedmer, LIVESTOCK AGENT- - Last Filed: 12/03/18 16:48> Lab Data Result diagrams: 12/03/18 13:40 12/03/18 13:40 Lab Results 12/03/18 12/03/18 12/03/18 Range/Units 13:05 13:40 13:40 WBC 12.0 H (4.5-11.0) X10^3/uL RBC 4.16 (4.0-5.2) X10^6/uL Hgb 10.9 L (12.0-16.0) g/dL Hct 33.2 L (36-46) % MCV 79.7 L (80-100) fL MCH 26.1 (26-34) PG MCHC 32.8 (30-36) % RDW 14.3 (11.6-14.8) % Plt Count 245 (150-400) X10^3/uL Neut % (Auto) 71.8 (50-75) % Lymph % (Auto) 16.7 L (25-40) % [place] % (Auto) 9.1 (3-14) % Eos % (Auto) 2.1 (2-4) % Baso % (Auto) 0.3 (0-2) % Neut # (Auto) 8600 H (7471-1340) /uL Lymph # (Auto) 2000 (6492-8633) /uL [place] # (Auto) 1100 H (0-900) /uL Eos # (Auto) 300 (0-450) /uL Baso # (Auto) 0 (0-100) /uL Sodium 139 (137-145) mmol/L Potassium 3.4 (3.4-5.1) mmol/L Chloride 103 (98-107) mmol/L Carbon Dioxide 27 (22-32) mmol/L BUN 14 (7-17) mg/dL Creatinine 1.00 (0.52-1.04) mg/dL Estimated GFR 58.5 L (>60) mL/min BUN/Creatinine Ratio 14.0 (6-22) Glucose 92 (70-100) mg/dL Lactate (0.7-2.1) mmol/L Calcium 8.8 (8.4-10.2) mg/dL Total Bilirubin 0.3 (0.2-1.3) mg/dL AST 13 L (14-36) IU/L ALT 20 (9-52) IU/L Alkaline Phosphatase 42 (38-126) U/L Total Protein 6.7 (6.3-8.2) g/dL Albumin 3.9 (3.5-5.0) g/dL Globulin 2.8 (1.7-4.1) g/dL Albumin/Globulin Ratio 1.4 (1.0-2.8) Procalcitonin (<0.5) ng/mL Urine Color Brown Urine Appearance Clear Urine pH 6.5 (4.5-8.0) Ur Specific [place] >=1.030 H (1.000-1.035) Urine Protein 3+ H (Negative) Urine Glucose (UA) Negative (Negative) g/dL Urine Ketones Trace H (NEGATIVE) Urine Occult Blood 3+ H (Negative) Urine Nitrate Positive H (Negative) Urine Bilirubin 1+ H (NEGATIVE) Urine Ictotest Negative (Negative) Urine Urobilinogen 2.0 H (0.2) E.U./dL Ur Leukocyte Esterase 1+ H (NEGATIVE) Urine RBC >100/hpf H (0-5/HPF) Urine WBC 10-30/hpf H (0-5/HPF) Urine Bacteria Few (2-10) H (None) Ur Culture Indicated? Specimen cultured 12/03/18 12/03/18 Range/Units 13:40 13:40 WBC (4.5-11.0) X10^3/uL RBC (4.0-5.2) X10^6/uL Hgb (12.0-16.0) g/dL Hct (36-46) % MCV (80-100) fL MCH (26-34) PG MCHC (30-36) % RDW (11.6-14.8) % Plt Count (150-400) X10^3/uL Neut % (Auto) (50-75) % Lymph % (Auto) (25-40) % [place] % (Auto) (3-14) % Eos % (Auto) (2-4) % Baso % (Auto) (0-2) % Neut # (Auto) (7840-2144) /uL Lymph # (Auto) (2198-5117) /uL [place] # (Auto) (0-900) /uL Eos # (Auto) (0-450) /uL Baso # (Auto) (0-100) /uL Sodium (137-145) mmol/L Potassium (3.4-5.1) mmol/L Chloride (98-107) mmol/L Carbon Dioxide (22-32) mmol/L BUN (7-17) mg/dL Creatinine (0.52-1.04) mg/dL Estimated GFR (>60) mL/min BUN/Creatinine Ratio (6-22) Glucose (70-100) mg/dL Lactate 1.3 (0.7-2.1) mmol/L Calcium (8.4-10.2) mg/dL Total Bilirubin (0.2-1.3) mg/dL AST (14-36) IU/L ALT (9-52) IU/L Alkaline Phosphatase (38-126) U/L Total Protein (6.3-8.2) g/dL Albumin (3.5-5.0) g/dL Globulin (1.7-4.1) g/dL Albumin/Globulin Ratio (1.0-2.8) Procalcitonin < 0.05 (<0.5) ng/mL Urine Color Urine Appearance Urine pH (4.5-8.0) Ur Specific [place] (1.000-1.035) Urine Protein (Negative) Urine Glucose (UA) (Negative) g/dL Urine Ketones (NEGATIVE) Urine Occult Blood (Negative) Urine Nitrate (Negative) Urine Bilirubin (NEGATIVE) Urine Ictotest (Negative) Urine Urobilinogen (0.2) E.U./dL Ur Leukocyte Esterase (NEGATIVE) Urine RBC (0-5/HPF) Urine WBC (0-5/HPF) Urine Bacteria (None) Ur Culture Indicated? Imaging Data CT scan - abdomen: Radiologist's impression: Marilu Soto 53 F [address] [address] [address] Scan Report Signed Patient: Chaka Soto#: [id number] : 1965Acct:[id number] Age/Sex: 53 / FDate of Service: 12/03/18 Loc: ED Accession Number: [id number] Procedure: CT abdomen pelvis w con Ordering Provider: Corinne Marie PROCEDURE: CT ABDOMEN PELVIS W CON INDICATIONS: abd pain s/p hysterscopy TECHNIQUE: After the administration of intravenous contrast, 5 mm thick sections acquired from the diaphragm to the symphysis. 5 mm coronal and sagittal reformats were acquired. For radiation dose reduction, the following was used: automated exposure control, adjustment of mA and/or kV according to patient size. COMPARISON: [facility], CT, CT ABDOMEN PELVIS WITH CONTRAST, 09/15/2017, 19:24. FINDINGS: Image quality: Excellent. ABDOMEN: Lung bases: There is mild atelectasis and scarring in the lung bases. Heart size is normal. There is a small hiatal hernia. Solid organs: Evaluation of the liver demonstrates no focal hepatic lesions the gallbladder appears within normal limits calcified gallstones. Biliary system is non dilated. Pancreas enhances normally. Spleen is normal in size and enhancement. No adrenal nodules. Kidneys demonstrate normal size and enhancement, without hydronephrosis. Peritoneum and bowel: There is mild gastric wall thickening in the region of the antrum. Bowel loops demonstrate normal wall thickness and caliber. There is colonic diverticulosis without acute diverticulitis. No evidence of appendicitis. No free fluid or air. Nodes and vessels: No retroperitoneal or mesenteric adenopathy by size criteria. Aorta and inferior vena cava are normal in size. Miscellaneous: No ventral hernias. PELVIS: Genitourinary: Bladder wall thickness is normal. The uterus and ovaries appear within normal size limits. Miscellaneous: No inguinal hernias or adenopathy. Bones: No suspicious bony lesions. No vertebral body compression fractures. IMPRESSION: 1. No intraperitoneal free fluid or free air. 2. Mild gastric wall thickening in the region of the antrum may reflect a mild gastritis. 3. Colonic diverticulosis without acute diverticulitis. Dictated by: Tom Rueda M.D. on 12/03/2018 at 16:06 Approved by: Tom Rueda M.D. 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 She is afebrile throughout her stay in the emergency department. She has a normal lactate, negative procalcitonin and is hemodynamically stable. She does have evidence of urinary tract infection on urinalysis, treating nitrates leukocyte esterase and blood. This will initiate treatment for UTI. She has tolerated Macrobid in the past, so elected this again. I encouraged follow-up with her surgeon as soon as possible as well as follow up with primary care provider. Return precautions discussed including flank pain, inability keep down fluids etc. I did obtain a CT scan given the patient's recent procedure which noted no air or free fluid in the pelvis. Patient stated understanding of return precautions. <Palma Reddy, DO - Last Filed: 12/04/18 10:31> Lab Data Lab Results 12/03/18 12/03/18 12/03/18 Range/Units 13:05 13:40 13:40 WBC 12.0 H (4.5-11.0) X10^3/uL RBC 4.16 (4.0-5.2) X10^6/uL Hgb 10.9 L (12.0-16.0) g/dL Hct 33.2 L (36-46) % MCV 79.7 L (80-100) fL MCH 26.1 (26-34) PG MCHC 32.8 (30-36) % RDW 14.3 (11.6-14.8) % Plt Count 245 (150-400) X10^3/uL Neut % (Auto) 71.8 (50-75) % Lymph % (Auto) 16.7 L (25-40) % [place] % (Auto) 9.1 (3-14) % Eos % (Auto) 2.1 (2-4) % Baso % (Auto) 0.3 (0-2) % Neut # (Auto) 8600 H (7806-2533) /uL Lymph # (Auto) 2000 (3825-1673) /uL [place] # (Auto) 1100 H (0-900) /uL Eos # (Auto) 300 (0-450) /uL Baso # (Auto) 0 (0-100) /uL Sodium 139 (137-145) mmol/L Potassium 3.4 (3.4-5.1) mmol/L Chloride 103 (98-107) mmol/L Carbon Dioxide 27 (22-32) mmol/L BUN 14 (7-17) mg/dL Creatinine 1.00 (0.52-1.04) mg/dL Estimated GFR 58.5 L (>60) mL/min BUN/Creatinine Ratio 14.0 (6-22) Glucose 92 (70-100) mg/dL Lactate (0.7-2.1) mmol/L Calcium 8.8 (8.4-10.2) mg/dL Total Bilirubin 0.3 (0.2-1.3) mg/dL AST 13 L (14-36) IU/L ALT 20 (9-52) IU/L Alkaline Phosphatase 42 (38-126) U/L Total Protein 6.7 (6.3-8.2) g/dL Albumin 3.9 (3.5-5.0) g/dL Globulin 2.8 (1.7-4.1) g/dL Albumin/Globulin Ratio 1.4 (1.0-2.8) Procalcitonin (<0.5) ng/mL Urine Color Brown Urine Appearance Clear Urine pH 6.5 (4.5-8.0) Ur Specific [place] >=1.030 H (1.000-1.035) Urine Protein 3+ H (Negative) Urine Glucose (UA) Negative (Negative) g/dL Urine Ketones Trace H (NEGATIVE) Urine Occult Blood 3+ H (Negative) Urine Nitrate Positive H (Negative) Urine Bilirubin 1+ H (NEGATIVE) Urine Ictotest Negative (Negative) Urine Urobilinogen 2.0 H (0.2) E.U./dL Ur Leukocyte Esterase 1+ H (NEGATIVE) Urine RBC >100/hpf H (0-5/HPF) Urine WBC 10-30/hpf H (0-5/HPF) Urine Bacteria Few (2-10) H (None) Ur Culture Indicated? Specimen cultured 12/03/18 12/03/18 Range/Units 13:40 13:40 WBC (4.5-11.0) X10^3/uL RBC (4.0-5.2) X10^6/uL Hgb (12.0-16.0) g/dL Hct (36-46) % MCV (80-100) fL MCH (26-34) PG MCHC (30-36) % RDW (11.6-14.8) % Plt Count (150-400) X10^3/uL Neut % (Auto) (50-75) % Lymph % (Auto) (25-40) % [place] % (Auto) (3-14) % Eos % (Auto) (2-4) % Baso % (Auto) (0-2) % Neut # (Auto) (2623-4984) /uL Lymph # (Auto) (6494-1807) /uL [place] # (Auto) (0-900) /uL Eos # (Auto) (0-450) /uL Baso # (Auto) (0-100) /uL Sodium (137-145) mmol/L Potassium (3.4-5.1) mmol/L Chloride (98-107) mmol/L Carbon Dioxide (22-32) mmol/L BUN (7-17) mg/dL Creatinine (0.52-1.04) mg/dL Estimated GFR (>60) mL/min BUN/Creatinine Ratio (6-22) Glucose (70-100) mg/dL Lactate 1.3 (0.7-2.1) mmol/L Calcium (8.4-10.2) mg/dL Total Bilirubin (0.2-1.3) mg/dL AST (14-36) IU/L ALT (9-52) IU/L Alkaline Phosphatase (38-126) U/L Total Protein (6.3-8.2) g/dL Albumin (3.5-5.0) g/dL Globulin (1.7-4.1) g/dL Albumin/Globulin Ratio (1.0-2.8) Procalcitonin < 0.05 (<0.5) ng/mL Urine Color Urine Appearance Urine pH (4.5-8.0) Ur Specific [place] (1.000-1.035) Urine Protein (Negative) Urine Glucose (UA) (Negative) g/dL Urine Ketones (NEGATIVE) Urine Occult Blood (Negative) Urine Nitrate (Negative) Urine Bilirubin (NEGATIVE) Urine Ictotest (Negative) Urine Urobilinogen (0.2) E.U./dL Ur Leukocyte Esterase (NEGATIVE) Urine RBC (0-5/HPF) Urine WBC (0-5/HPF) Urine Bacteria (None) Ur Culture Indicated? Discharge Plan Departure Patient Disposition: Home Clinical Impression: Urinary tract infection Qualifiers: Urinary tract infection type: site unspecified Hematuria presence: with hematuria Qualified Code(s): N39.0 - Urinary tract infection, site not specified Discharge Date/Time: 12/03/18 16:48 Interventions: ED Discharge Assessment Last Done: 12/03/18 16:40 Instructions: DI for Urinary Tract Infection (UTI) Activity Restrictions/Additional Instructions: You do not have any fever here in the emergency department today. Your urine shows signs of infection. Let us start antibiotics and we will send a urine culture. You will get a phone call if the antibiotic will not work for her infection. Please monitor for flank or back pain, inability keep down fluids or worsening as these are signs that her infection is getting worse. Please follow up with primary care provider as well as her surgeon. Come back to the ER for any acute concerns. Prescriptions: New nitrofurantoin monohyd/m-cryst [Macrobid] 100 mg capsule 100 mg PO BID Qty: 20 RF: 0 No Action bisoprolol fumarate 5 MG tablet 5 mg PO DAILY Qty: 0 RF: 0 levothyroxine [Synthroid] 25 MCG tablet 25 mcg PO DAILY Qty: 0 RF: 0 lorazepam 0.5 mg tablet 0.5 mg PO Q6H PRN (Reason: Anxiety) RF: 0 amlodipine 2.5 mg tablet 2.5 mg PO DAILY RF: 0 potassium chloride 10 mEq tablet extended release 10 meq PO DAILY RF: 0 prednisolone acetate 1 % drops,suspension See Rx Instructions .ROUTE .COMPLEX RF: 0 norethindrone acetate 5 mg tablet See Rx Instructions .ROUTE .COMPLEX RF: 0 rosuvastatin 10 mg tablet 10 mg PO DAILY RF: 0 mesalamine 1.2 gram tablet,delayed release (DR/EC) 3.6 g PO DAILY RF: 0 aspirin 81 mg Tablet,Delayed Release (Dr/Ec) 81 mg PO DAILY RF: 0 Vitamin C 1 tab PO DAILY RF: 0 Referrals: Ana Ordonez MD [Primary Care Provider] - <Palma Reddy DO - Last Filed: 12/04/18 10:31> Cosign ED Attending Brigetteature Attestation: I was immediately available in the department for consultation. Documentation has been reviewed. I agree with assessment and plan.
[2018-12-03 13:47] LABS: Add Manual Diff / Slide Review NO; Basophils Absolute Auto 0 /uL (0-100); Basophils Percent Auto 0.3 % (0-2); Eosinophils Absolute Auto 300 /uL (0-450); Eosinophils Percent Auto 2.1 % (2-4); Hematocrit 33.2 % (36-46); Hemoglobin 10.9 g/dL (12.0-16.0); Lymphocytes Absolute Auto 2000 /uL (1100-4500); Lymphocytes Percent Auto 16.7 % (25-40); Mean Corpuscular HGB Conc 32.8 % (30-36); Mean Corpuscular Hemoglobin 26.1 PG (26-34); Mean Corpuscular Volume 79.7 fL (80-100); Monocytes Absolute Auto 1100 /uL (0-900); Monocytes Percent Auto 9.1 % (3-14); Neutrophils Absolute Auto 8600 /uL (1500-7000); Neutrophils Percent Auto 71.8 % (50-75); Platelet Count 245 X10^3/uL (150-400); Red Blood Cell Count 4.16 X10^6/uL (4.0-5.2); Red Cell Distribution Width 14.3 % (11.6-14.8)
--- NOTE | 2018-12-03 13:48 | ED_ITS ---
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 The patient had a hysteroscopy with morcellator on 11/[address] Her surgeon was Dr. Rivera. Two days ago she started having fevers up to 101 or 102. She was seen by her primary care yesterday, who sent her to [facility] emergency department for fluids and further workup. She states she received IV fluids as well as IV Tylenol. She had a fever of 101 and again last night. She has not taken anything for pain or fever today. She does has have a history of IBS and states diarrhea is consistent for her. She denies any abnormal vaginal discharge. She states that her bleeding at this point is to be expected and is under control. She spoke with the on-call surgeon from [facility], who states she needed to come to the emergency department for evaluation. Records from [facility] illustrate a visit for chief complaint of a headache. she was afebrile throughout her stay at [facility]. Related Data Home Medications Medication Instructions Recorded Confirmed bisoprolol fumarate 5 mg PO DAILY #0 10/29/16 11/07/18 levothyroxine [Synthroid] 25 mcg PO DAILY #0 10/29/16 11/07/18 Vitamin C 1 tab PO DAILY 11/07/18 11/07/18 amlodipine 2.5 mg PO DAILY 11/07/18 11/07/18 aspirin 81 mg PO DAILY 11/07/18 11/07/18 lorazepam 0.5 mg PO Q6H PRN 11/07/18 11/07/18 mesalamine 3.6 g PO DAILY 11/07/18 11/07/18 norethindrone acetate See Rx Instructions .ROUTE .COMPLEX 11/07/18 11/07/18 potassium chloride 10 meq PO DAILY 11/07/18 11/07/18 prednisolone acetate See Rx Instructions .ROUTE .COMPLEX 11/07/18 11/07/18 rosuvastatin 10 mg PO DAILY 11/07/18 11/07/18 Previous Rx's Medication Instructions Recorded nitrofurantoin monohyd/m-cryst 100 mg PO BID #20 cap 12/03/18 [Macrobid] Allergies Allergy/AdvReac Type Severity Reaction Status Date / Time prochlorperazine Allergy Severe Swelling Verified 11/07/18 08:10 [From COMPAZINE] of Lip/Tongue/Throat ondansetron [From Zofran] Allergy Intermediate Swelling Verified 11/07/18 08:10 of Lip/Tongue/Throat epinephrine [EPINEPHRINE] AdvReac Unknown TACHY Verified 11/07/18 08:10 hydromorphone [From DILAUDID] AdvReac Unknown CAN'T Verified 11/07/18 08:10 BREATH Review of Systems <EVELIA Painter - Last Filed: 12/03/18 16:48> Review of Systems GENERAL: Denies chills, fatigue, malaise, fever, sweats. HEENT: Denies sinus pain, ear pain, sore throat, difficulty swallowing, dizziness. RESPIRATORY: Denies dyspnea, cough, wheezing, hemoptysis, sputum. CARDIOVASCULAR: Denies chest pain, palpitations, orthopnea, edema, GASTROINTESTINAL: See HPI : See HPI MUSCULOSKELETAL: denies weakness, joint pain, or bony pain SKIN: Denies rash, skin lesions, or other NEUROLOGIC: Denies weakness, headache, numbness, change in speech, confusion, seizures, incoordination. PSYCHIATRIC: No concerning psychosocial issues. 12 point review of systems is negative except for those stated above PFSH <EVELIA Painter - Last Filed: 12/03/18 16:48> Medical History (Updated 12/03/18 @ 16:37 by EVELIA Painter) Atrial flutter (Acute) Lupus (Acute) Ulcerative colitis (Acute) Decreased vision (Chronic) Family History (Updated 01/31/18 @ 06:10 by Palma Reddy DO) Father Coronary artery disease Family/Other Coronary artery disease Social History Smoking Status: Never smoker alcohol intake: never Exam <EVELIA Painter - Last Filed: 12/03/18 16:48> Narrative Exam Narrative: GENERAL: This is a well-nourished, well-developed patient, lying on her side HEAD: Atraumatic. Normocephalic. No temporal or scalp tenderness. EYES: Pupils equal round and reactive. Extraocular motions intact. No scleral icterus. No injection or drainage. ENT: Nose without bleeding, purulent drainage or septal hematoma. Throat without erythema, tonsillar hypertrophy or exudate. Uvula midline. Airway patent. NECK: Trachea midline. No JVD or lymphadenopathy. Supple, nontender, no meningeal signs. CARDIOVASCULAR: Regular rate and rhythm without murmurs, gallops, or rubs. RESPIRATORY: Clear to auscultation. Breath sounds equal bilaterally. No wheezes, rales, or rhonchi. No cough. No increased respiratory effort. GASTROINTESTINAL: Abdomen soft, suprapubic tenderness diffusely to palpation, nondistended. No hepato-splenomegaly, or palpable masses. No guarding. active bowel sounds all 4 quadrants EXTREMITIES: No clubbing, cyanosis, or edema. No joint tenderness, effusion, or edema noted. BACK: Nontender without deformity or crepitance. No flank tenderness. NEURO: AOx3. SKIN: No rash or erythema. Initial Vital Signs Initial Vital Signs: Vital Signs Temperature 97.9 F 12/03/18 12:34 Pulse Rate 89 12/03/18 12:34 Respiratory Rate 18 12/03/18 12:34 Blood Pressure 145/88 H 12/03/18 12:34 Pulse Oximetry 100 12/03/18 12:34 <Palma Reddy DO - Last Filed: 12/04/18 10:31> Initial Vital Signs Initial Vital Signs: Vital Signs Temperature 97.9 F 12/03/18 12:34 Pulse Rate 89 12/03/18 12:34 Respiratory Rate 18 12/03/18 12:34 Blood Pressure 145/88 H 12/03/18 12:34 Pulse Oximetry 100 12/03/18 12:34 Course <EVELIA Painter - Last Filed: 12/03/18 16:48> Orders Ordered: Discontinued Medications Diphenhydramine HCl (Benadryl) 50 mg IV NOW ONE Stop: 12/03/18 14:37 Last Admin: 12/03/18 14:50 Dose: 50 mg Sodium Chloride (Normal Saline 0.9%) 1,000 mls @ 1,000 mls/hr IV BOLUS ONE Stop: 12/03/18 14:15 Last Infusion: 12/03/18 16:14 Dose: 0 mls/hr Admin: 12/03/18 14:02 Dose: 1,000 mls/hr Ketorolac Tromethamine (Toradol) 15 mg IV NOW ONE Stop: 12/03/18 13:17 Last Admin: 12/03/18 14:01 Dose: 15 mg Methylprednisolone (Solu-Medrol 125 Mg Vial) 125 mg IV NOW ONE Stop: 12/03/18 14:37 Last Admin: 12/03/18 14:54 Dose: 125 mg Vital Signs - 8 hr 12/03/18 12:34 12/03/18 15:01 12/03/18 15:50 Temperature 97.9 F Pulse Rate 89 72 72 Respiratory Rate 18 16 16 Blood Pressure 145/88 H Blood Pressure [Right Arm] 155/74 H 151/73 H Pulse Oximetry 100 100 100 12/03/18 16:32 Temperature 98.1 F Pulse Rate 76 Respiratory Rate 16 Blood Pressure Blood Pressure [Right Arm] 137/67 Pulse Oximetry 98 <Palma Reddy, DO - Last Filed: 12/04/18 10:31> Orders Ordered: Discontinued Medications Diphenhydramine HCl (Benadryl) 50 mg IV NOW ONE Stop: 12/03/18 14:37 Last Admin: 12/03/18 14:50 Dose: 50 mg Sodium Chloride (Normal Saline 0.9%) 1,000 mls @ 1,000 mls/hr IV BOLUS ONE Stop: 12/03/18 14:15 Last Infusion: 12/03/18 16:14 Dose: 0 mls/hr Admin: 12/03/18 14:02 Dose: 1,000 mls/hr Ketorolac Tromethamine (Toradol) 15 mg IV NOW ONE Stop: 12/03/18 13:17 Last Admin: 12/03/18 14:01 Dose: 15 mg Methylprednisolone (Solu-Medrol 125 Mg Vial) 125 mg IV NOW ONE Stop: 12/03/18 14:37 Last Admin: 12/03/18 14:54 Dose: 125 mg Vital Signs - 8 hr 12/03/18 12:34 12/03/18 15:01 12/03/18 15:50 Temperature 97.9 F Pulse Rate 89 72 72 Respiratory Rate 18 16 16 Blood Pressure 145/88 H Blood Pressure [Right Arm] 155/74 H 151/73 H Pulse Oximetry 100 100 100 12/03/18 16:32 Temperature 98.1 F Pulse Rate 76 Respiratory Rate 16 Blood Pressure Blood Pressure [Right Arm] 137/67 Pulse Oximetry 98 MDM - Female Genitourinary <Corinnepaul Rasheedmer, PRODUCTION LINE WORKER- - Last Filed: 12/03/18 16:48> Lab Data Result diagrams: 12/03/18 13:40 12/03/18 13:40 Lab Results 12/03/18 12/03/18 12/03/18 Range/Units 13:05 13:40 13:40 WBC 12.0 H (4.5-11.0) X10^3/uL RBC 4.16 (4.0-5.2) X10^6/uL Hgb 10.9 L (12.0-16.0) g/dL Hct 33.2 L (36-46) % MCV 79.7 L (80-100) fL MCH 26.1 (26-34) PG MCHC 32.8 (30-36) % RDW 14.3 (11.6-14.8) % Plt Count 245 (150-400) X10^3/uL Neut % (Auto) 71.8 (50-75) % Lymph % (Auto) 16.7 L (25-40) % [place] % (Auto) 9.1 (3-14) % Eos % (Auto) 2.1 (2-4) % Baso % (Auto) 0.3 (0-2) % Neut # (Auto) 8600 H (4157-9782) /uL Lymph # (Auto) 2000 (0608-3227) /uL [place] # (Auto) 1100 H (0-900) /uL Eos # (Auto) 300 (0-450) /uL Baso # (Auto) 0 (0-100) /uL Sodium 139 (137-145) mmol/L Potassium 3.4 (3.4-5.1) mmol/L Chloride 103 (98-107) mmol/L Carbon Dioxide 27 (22-32) mmol/L BUN 14 (7-17) mg/dL Creatinine 1.00 (0.52-1.04) mg/dL Estimated GFR 58.5 L (>60) mL/min BUN/Creatinine Ratio 14.0 (6-22) Glucose 92 (70-100) mg/dL Lactate (0.7-2.1) mmol/L Calcium 8.8 (8.4-10.2) mg/dL Total Bilirubin 0.3 (0.2-1.3) mg/dL AST 13 L (14-36) IU/L ALT 20 (9-52) IU/L Alkaline Phosphatase 42 (38-126) U/L Total Protein 6.7 (6.3-8.2) g/dL Albumin 3.9 (3.5-5.0) g/dL Globulin 2.8 (1.7-4.1) g/dL Albumin/Globulin Ratio 1.4 (1.0-2.8) Procalcitonin (<0.5) ng/mL Urine Color Brown Urine Appearance Clear Urine pH 6.5 (4.5-8.0) Ur Specific [place] >=1.030 H (1.000-1.035) Urine Protein 3+ H (Negative) Urine Glucose (UA) Negative (Negative) g/dL Urine Ketones Trace H (NEGATIVE) Urine Occult Blood 3+ H (Negative) Urine Nitrate Positive H (Negative) Urine Bilirubin 1+ H (NEGATIVE) Urine Ictotest Negative (Negative) Urine Urobilinogen 2.0 H (0.2) E.U./dL Ur Leukocyte Esterase 1+ H (NEGATIVE) Urine RBC >100/hpf H (0-5/HPF) Urine WBC 10-30/hpf H (0-5/HPF) Urine Bacteria Few (2-10) H (None) Ur Culture Indicated? Specimen cultured 12/03/18 12/03/18 Range/Units 13:40 13:40 WBC (4.5-11.0) X10^3/uL RBC (4.0-5.2) X10^6/uL Hgb (12.0-16.0) g/dL Hct (36-46) % MCV (80-100) fL MCH (26-34) PG MCHC (30-36) % RDW (11.6-14.8) % Plt Count (150-400) X10^3/uL Neut % (Auto) (50-75) % Lymph % (Auto) (25-40) % [place] % (Auto) (3-14) % Eos % (Auto) (2-4) % Baso % (Auto) (0-2) % Neut # (Auto) (1263-4704) /uL Lymph # (Auto) (6247-9457) /uL [place] # (Auto) (0-900) /uL Eos # (Auto) (0-450) /uL Baso # (Auto) (0-100) /uL Sodium (137-145) mmol/L Potassium (3.4-5.1) mmol/L Chloride (98-107) mmol/L Carbon Dioxide (22-32) mmol/L BUN (7-17) mg/dL Creatinine (0.52-1.04) mg/dL Estimated GFR (>60) mL/min BUN/Creatinine Ratio (6-22) Glucose (70-100) mg/dL Lactate 1.3 (0.7-2.1) mmol/L Calcium (8.4-10.2) mg/dL Total Bilirubin (0.2-1.3) mg/dL AST (14-36) IU/L ALT (9-52) IU/L Alkaline Phosphatase (38-126) U/L Total Protein (6.3-8.2) g/dL Albumin (3.5-5.0) g/dL Globulin (1.7-4.1) g/dL Albumin/Globulin Ratio (1.0-2.8) Procalcitonin < 0.05 (<0.5) ng/mL Urine Color Urine Appearance Urine pH (4.5-8.0) Ur Specific [place] (1.000-1.035) Urine Protein (Negative) Urine Glucose (UA) (Negative) g/dL Urine Ketones (NEGATIVE) Urine Occult Blood (Negative) Urine Nitrate (Negative) Urine Bilirubin (NEGATIVE) Urine Ictotest (Negative) Urine Urobilinogen (0.2) E.U./dL Ur Leukocyte Esterase (NEGATIVE) Urine RBC (0-5/HPF) Urine WBC (0-5/HPF) Urine Bacteria (None) Ur Culture Indicated? Imaging Data CT scan - abdomen: Radiologist's impression: Marilu Soto 53 F [address] [address] [address] Scan Report Signed Patient: Chaka Soto#: [id number] : 1965Acct:[id number] Age/Sex: 53 / FDate of Service: 12/03/18 Loc: ED Accession Number: [id number] Procedure: CT abdomen pelvis w con Ordering Provider: Corinne Marie PROCEDURE: CT ABDOMEN PELVIS W CON INDICATIONS: abd pain s/p hysterscopy TECHNIQUE: After the administration of intravenous contrast, 5 mm thick sections acquired from the diaphragm to the symphysis. 5 mm coronal and sagittal reformats were acquired. For radiation dose reduction, the following was used: automated exposure control, adjustment of mA and/or kV according to patient size. COMPARISON: [facility], CT, CT ABDOMEN PELVIS WITH CONTRAST, 09/15/2017, 19:24. FINDINGS: Image quality: Excellent. ABDOMEN: Lung bases: There is mild atelectasis and scarring in the lung bases. Heart size is normal. There is a small hiatal hernia. Solid organs: Evaluation of the liver demonstrates no focal hepatic lesions the gallbladder appears within normal limits calcified gallstones. Biliary system is non dilated. Pancreas enhances normally. Spleen is normal in size and enhancement. No adrenal nodules. Kidneys demonstrate normal size and enhancement, without hydronephrosis. Peritoneum and bowel: There is mild gastric wall thickening in the region of the antrum. Bowel loops demonstrate normal wall thickness and caliber. There is colonic diverticulosis without acute diverticulitis. No evidence of appendicitis. No free fluid or air. Nodes and vessels: No retroperitoneal or mesenteric adenopathy by size criteria. Aorta and inferior vena cava are normal in size. Miscellaneous: No ventral hernias. PELVIS: Genitourinary: Bladder wall thickness is normal. The uterus and ovaries appear within normal size limits. Miscellaneous: No inguinal hernias or adenopathy. Bones: No suspicious bony lesions. No vertebral body compression fractures. IMPRESSION: 1. No intraperitoneal free fluid or free air. 2. Mild gastric wall thickening in the region of the antrum may reflect a mild gastritis. 3. Colonic diverticulosis without acute diverticulitis. Dictated by: Tom Rueda M.D. on 12/03/2018 at 16:06 Approved by: Tom Rueda M.D. on 12/03/2018 at 16:08 [facility] Narrative Medical decision making narrative: The patient is a 53-year-old female who pre sents with a chief complaint of fevers at home after an ob gyn physician assistant surgery on the . She is afebrile throughout her stay in the emergency department. She has a normal lactate, negative procalcitonin and is hemodynamically stable. She does have evidence of urinary tract infection on urinalysis, treating nitrates leukocyte esterase and blood. This will initiate treatment for UTI. She has tolerated Macrobid in the past, so elected this again. I encouraged follow-up with her surgeon as soon as possible as well as follow up with primary care provider. Return precautions discussed including flank pain, inability keep down fluids etc. I did obtain a CT scan given the patient's recent procedure which noted no air or free fluid in the pelvis. Patient stated understanding of return precautions. <Palma Reddy, DO - Last Filed: 12/04/18 10:31> Lab Data Lab Results 12/03/18 12/03/18 12/03/18 Range/Units 13:05 13:40 13:40 WBC 12.0 H (4.5-11.0) X10^3/uL RBC 4.16 (4.0-5.2) X10^6/uL Hgb 10.9 L (12.0-16.0) g/dL Hct 33.2 L (36-46) % MCV 79.7 L (80-100) fL MCH 26.1 (26-34) PG MCHC 32.8 (30-36) % RDW 14.3 (11.6-14.8) % Plt Count 245 (150-400) X10^3/uL Neut % (Auto) 71.8 (50-75) % Lymph % (Auto) 16.7 L (25-40) % [place] % (Auto) 9.1 (3-14) % Eos % (Auto) 2.1 (2-4) % Baso % (Auto) 0.3 (0-2) % Neut # (Auto) 8600 H (4310-5374) /uL Lymph # (Auto) 2000 (6369-3903) /uL [place] # (Auto) 1100 H (0-900) /uL Eos # (Auto) 300 (0-450) /uL Baso # (Auto) 0 (0-100) /uL Sodium 139 (137-145) mmol/L Potassium 3.4 (3.4-5.1) mmol/L Chloride 103 (98-107) mmol/L Carbon Dioxide 27 (22-32) mmol/L BUN 14 (7-17) mg/dL Creatinine 1.00 (0.52-1.04) mg/dL Estimated GFR 58.5 L (>60) mL/min BUN/Creatinine Ratio 14.0 (6-22) Glucose 92 (70-100) mg/dL Lactate (0.7-2.1) mmol/L Calcium 8.8 (8.4-10.2) mg/dL Total Bilirubin 0.3 (0.2-1.3) mg/dL AST 13 L (14-36) IU/L ALT 20 (9-52) IU/L Alkaline Phosphatase 42 (38-126) U/L Total Protein 6.7 (6.3-8.2) g/dL Albumin 3.9 (3.5-5.0) g/dL Globulin 2.8 (1.7-4.1) g/dL Albumin/Globulin Ratio 1.4 (1.0-2.8) Procalcitonin (<0.5) ng/mL Urine Color Brown Urine Appearance Clear Urine pH 6.5 (4.5-8.0) Ur Specific [place] >=1.030 H (1.000-1.035) Urine Protein 3+ H (Negative) Urine Glucose (UA) Negative (Negative) g/dL Urine Ketones Trace H (NEGATIVE) Urine Occult Blood 3+ H (Negative) Urine Nitrate Positive H (Negative) Urine Bilirubin 1+ H (NEGATIVE) Urine Ictotest Negative (Negative) Urine Urobilinogen 2.0 H (0.2) E.U./dL Ur Leukocyte Esterase 1+ H (NEGATIVE) Urine RBC >100/hpf H (0-5/HPF) Urine WBC 10-30/hpf H (0-5/HPF) Urine Bacteria Few (2-10) H (None) Ur Culture Indicated? Specimen cultured 12/03/18 12/03/18 Range/Units 13:40 13:40 WBC (4.5-11.0) X10^3/uL RBC (4.0-5.2) X10^6/uL Hgb (12.0-16.0) g/dL Hct (36-46) % MCV (80-100) fL MCH (26-34) PG MCHC (30-36) % RDW (11.6-14.8) % Plt Count (150-400) X10^3/uL Neut % (Auto) (50-75) % Lymph % (Auto) (25-40) % [place] % (Auto) (3-14) % Eos % (Auto) (2-4) % Baso % (Auto) (0-2) % Neut # (Auto) (2325-5082) /uL Lymph # (Auto) (5393-5967) /uL [place] # (Auto) (0-900) /uL Eos # (Auto) (0-450) /uL Baso # (Auto) (0-100) /uL Sodium (137-145) mmol/L Potassium (3.4-5.1) mmol/L Chloride (98-107) mmol/L Carbon Dioxide (22-32) mmol/L BUN (7-17) mg/dL Creatinine (0.52-1.04) mg/dL Estimated GFR (>60) mL/min BUN/Creatinine Ratio (6-22) Glucose (70-100) mg/dL Lactate 1.3 (0.7-2.1) mmol/L Calcium (8.4-10.2) mg/dL Total Bilirubin (0.2-1.3) mg/dL AST (14-36) IU/L ALT (9-52) IU/L Alkaline Phosphatase (38-126) U/L Total Protein (6.3-8.2) g/dL Albumin (3.5-5.0) g/dL Globulin (1.7-4.1) g/dL Albumin/Globulin Ratio (1.0-2.8) Procalcitonin < 0.05 (<0.5) ng/mL Urine Color Urine Appearance Urine pH (4.5-8.0) Ur Specific [place] (1.000-1.035) Urine Protein (Negative) Urine Glucose (UA) (Negative) g/dL Urine Ketones (NEGATIVE) Urine Occult Blood (Negative) Urine Nitrate (Negative) Urine Bilirubin (NEGATIVE) Urine Ictotest (Negative) Urine Urobilinogen (0.2) E.U./dL Ur Leukocyte Esterase (NEGATIVE) Urine RBC (0-5/HPF) Urine WBC (0-5/HPF) Urine Bacteria (None) Ur Culture Indicated? Discharge Plan Departure Patient Disposition: Home Clinical Impression: Urinary tract infection Qualifiers: Urinary tract infection type: site unspecified Hematuria presence: with hematuria Qualified Code(s): N39.0 - Urinary tract infection, site not specified Discharge Date/Time: 12/03/18 16:48 Interventions: ED Discharge Assessment Last Done: 12/03/18 16:40 Instructions: DI for Urinary Tract Infection (UTI) Activity Restrictions/Additional Instructions: You do not have any fever here in the emergency department today. Your urine shows signs of infection. Let us start antibiotics and we will send a urine culture. You will get a phone call if the antibiotic will not work for her infection. Please monitor for flank or back pain, inability keep down fluids or worsening as these are signs that her infection is getting worse. Please follow up with primary care provider as well as her surgeon. Come back to the ER for any acute concerns. Prescriptions: New nitrofurantoin monohyd/m-cryst [Macrobid] 100 mg capsule 100 mg PO BID Qty: 20 RF: 0 No Action bisoprolol fumarate 5 MG tablet 5 mg PO DAILY Qty: 0 RF: 0 levothyroxine [Synthroid] 25 MCG tablet 25 mcg PO DAILY Qty: 0 RF: 0 lorazepam 0.5 mg tablet 0.5 mg PO Q6H PRN (Reason: Anxiety) RF: 0 amlodipine 2.5 mg tablet 2.5 mg PO DAILY RF: 0 potassium chloride 10 mEq tablet extended release 10 meq PO DAILY RF: 0 prednisolone acetate 1 % drops,suspension See Rx Instructions .ROUTE .COMPLEX RF: 0 norethindrone acetate 5 mg tablet See Rx Instructions .ROUTE .COMPLEX RF: 0 rosuvastatin 10 mg tablet 10 mg PO DAILY RF: 0 mesalamine 1.2 gram tablet,delayed release (DR/EC) 3.6 g PO DAILY RF: 0 aspirin 81 mg Tablet,Delayed Release (Dr/Ec) 81 mg PO DAILY RF: 0 Vitamin C 1 tab PO DAILY RF: 0 Referrals: Ana Ordonez MD [Primary Care Provider] - <Palma Reddy DO - Last Filed: 12/04/18 10:31> Cosign ED Attending Cosignature Attestation: I was immediately available in the department for consultation. Documentation has been reviewed. I agree with assessment and plan.
[2018-12-03 13:58] LABS: Alanine Aminotransferase 20 IU/L (9-52); Albumin 3.9 g/dL (3.5-5.0); Albumin Globulin Ratio 1.4 (1.0-2.8); Alkaline Phosphatase 42 U/L (38-126); Aspartate Aminotransferase 13 IU/L (14-36); Bilirubin Total 0.3 mg/dL (0.2-1.3); Blood Urea Nitrogen 14 mg/dL (7-17); Calcium 8.8 mg/dL (8.4-10.2); Carbon Dioxide 27 mmol/L (22-32); Chloride 103 mmol/L (98-107); Estimated Glomerular Filt Rate 58.5 mL/min (>60); Globulin 2.8 g/dL (1.7-4.1); Glucose 92 mg/dL (70-100); HEMOLYSIS < 15 (0-50); Lactate (Lactic Acid) 1.3 mmol/L (0.7-2.1); Potassium 3.4 mmol/L (3.4-5.1); Sodium 139 mmol/L (137-145); Total Protein 6.7 g/dL (6.3-8.2)
[2018-12-03] MEDS: KETOROLAC 60 MG/2 ML VIAL 15 MG IV (14:01)
[2018-12-03] MEDS: SODIUM CHLORIDE 0.9% 1,000 ML 1000 ML IV (14:02)
--- NOTE | 2018-12-03 14:20 | PC.NURSE ---
Patient reports D&C on tuesday 11/28 to remove and biopsy polyps due history of uterine cancer in her family. Last night ebgan with fever and vaginal bleeding. Fever of 102F yesterday and 100.4 F this morning at 11am. [facility]. Her Surgeon told her to come assess for infection.
[2018-12-03 14:22] LABS: Procalcitonin < 0.05 ng/mL (<0.5)
[2018-12-03 14:22] LABS: Appearance Urine UA CLEAR; Glucose Urine UA NEGATIVE (Negative); Ketones Urine UA TRACE (NEGATIVE); Leukocyte Esterase Urine UA 1+ (NEGATIVE); Nitrite Urine UA POSITIVE (Negative); Occult Blood Urine UA 3+ (Negative); Protein Urine UA 3+ (Negative); Specific Gravity Urine UA >=1.030 (1.000-1.035); pH Urine UA 6.5 (4.5-8.0)
[2018-12-03 14:24] LABS: Color Urine UA BROWN
[2018-12-03 14:29] LABS: Bacteria Urine Few (2-10); Culture Indicated Urine Specimen Cultured; RBC Urine >100/HPF (0-5/HPF); WBC Urine 10-30/HPF (0-5/HPF)
[2018-12-03 14:35] LABS: Bilirubin Urine UA 1+ (NEGATIVE); Ictotest Urine Negative (Negative)
--- NOTE | 2018-12-03 14:37 | DI.CT.S_ITS ---
PROCEDURE: CT ABDOMEN PELVIS W CON INDICATIONS: abd pain s/p hysterscopy TECHNIQUE: After the administration of intravenous contrast, 5 mm thick sections acquired from the diaphragm to the symphysis. 5 mm coronal and sagittal reformats were acquired. For radiation dose reduction, the following was used: automated exposure control, adjustment of mA and/or kV according to patient size. COMPARISON: [facility], CT, CT ABDOMEN PELVIS WITH CONTRAST, 09/15/2017, 19:24. FINDINGS: Image quality: Excellent. ABDOMEN: Lung bases: There is mild atelectasis and scarring in the lung bases. Heart size is normal. There is a small hiatal hernia. Solid organs: Evaluation of the liver demonstrates no focal hepatic lesions the gallbladder appears within normal limits calcified gallstones. Biliary system is non dilated. Pancreas enhances normally. Spleen is normal in size and enhancement. No adrenal nodules. Kidneys demonstrate normal size and enhancement, without hydronephrosis. Peritoneum and bowel: There is mild gastric wall thickening in the region of the antrum. Bowel loops demonstrate normal wall thickness and caliber. There is colonic diverticulosis without acute diverticulitis. No evidence of appendicitis. No free fluid or air. Nodes and vessels: No retroperitoneal or mesenteric adenopathy by size criteria. Aorta and inferior vena cava are normal in size. Miscellaneous: No ventral hernias. PELVIS: Genitourinary: Bladder wall thickness is normal. The uterus and ovaries appear within normal size limits. Miscellaneous: No inguinal hernias or adenopathy. Bones: No suspicious bony lesions. No vertebral body compression fractures. IMPRESSION: 1. No intraperitoneal free fluid or free air. 2. Mild gastric wall thickening in the region of the antrum may reflect a mild gastritis. 3. Colonic diverticulosis without acute diverticulitis. Dictated by: Tom Rueda M.D. on 12/03/2018 at 16:06 Approved by: Tom Rueda M.D. on 12/03/2018 at 16:08
[2018-12-03] MEDS: diphenhydrAMINE 50 MG/ML VIAL IV (14:50)
[2018-12-03] MEDS: methylPREDNISolone 125 MG/2 ML VIAL IV (14:54)
[2018-12-03 15:01] VITALS: BP 155/74; PULSE 72; RESP 16; O2SAT 100
[2018-12-03 15:50] VITALS: BP 151/73; PULSE 72; RESP 16; O2SAT 100
[2018-12-03 16:32] VITALS: BP 137/67; PULSE 76; RESP 16; TEMP 36.7; O2SAT 98
== END 2018-12-03 16:48 | disposition home or self-care (01) ==
PROVIDERS: Emergency Provider Nurse Practitioner Family; PCP Family Medicine
DX: N39.0 Urinary tract infection, site not specified (principal)
CPT/HCPCS: 36415; 36591; 74177; 80053; 81001; 83605; 84145; 85025; 87040; 87077; 87086; 87186; 96361; 96374; 96375; 99284; J1200; J1885; J2930; Q9967

== ENCOUNTER 2020-10-04 14:27 | Emergency (ER) | payer OTHER, SELFPAY ==
[2020-10-04] VITALS (13 sets, daily range): BP systolic 139–176; BP diastolic 72–96; PULSE 70–84; RESP 12–30; TEMP 36.3–36.7; O2SAT 97–100; BMI 38.2
--- NOTE | 2020-10-04 15:00 | DI.RAD.S_ITS ---
PROCEDURE: XR CHEST 1V INDICATIONS: Shortness of Breath TECHNIQUE: One view of the chest was acquired. COMPARISON: [facility], CR, XR CHEST 1 VIEW, 12/07/2019, 11:38. [facility], CR, XR CHEST 1V, 11/07/2018, 8:23. FINDINGS: Surgical changes and devices: None. Lungs and pleura: Lungs are clear. No pleural effusions or pneumothorax. Mediastinum: Mediastinal contours appear normal. Heart size is normal. Bones and chest wall: No suspicious bony lesions. Overlying soft tissues appear unremarkable. IMPRESSION: No acute cardiopulmonary disease. Dictated by: Fadia Limon M.D. on 10/04/2020 at 15:55 Approved by: Fadia Limon M.D. on 10/04/2020 at 15:56
[2020-10-04 15:39] LABS: COVID19 -Nasal RAPID Negative (Negative)
--- NOTE | 2020-10-04 15:57 | ED.GENADULT ---
HPI - General Adult General Chief complaint: Shortness of Breath/Dyspnea Stated complaint: chest pain, SOB, light headed since AM Time Seen by Provider: 10/04/20 15:15 Source: patient Mode of arrival: Wheelchair Limitations: no limitations History of Present Illness HPI narrative: 55-year-old female with a history of asthma was recently diagnosed with pneumonia. Is currently on doxycycline. She is also on steroids. Is blind. Was getting some blood drawn today when she became lightheaded and had some chest pain and some shortness of breath. She has been taking all of her medications as directed. No fevers. Related Data Home Medications Medication Instructions Recorded Confirmed bisoprolol fumarate 5 mg PO DAILY #0 10/29/16 11/07/18 levothyroxine [Synthroid] 25 mcg PO DAILY #0 10/29/16 11/07/18 Vitamin C 1 tab PO DAILY 11/07/18 11/07/18 amlodipine 2.5 mg PO DAILY 11/07/18 11/07/18 aspirin 81 mg PO DAILY 11/07/18 11/07/18 lorazepam 0.5 mg PO Q6H PRN 11/07/18 11/07/18 mesalamine 3.6 g PO DAILY 11/07/18 11/07/18 norethindrone acetate See Rx Instructions .ROUTE .COMPLEX 11/07/18 11/07/18 potassium chloride 10 meq PO DAILY 11/07/18 11/07/18 prednisolone acetate See Rx Instructions .ROUTE .COMPLEX 11/07/18 11/07/18 rosuvastatin 10 mg PO DAILY 11/07/18 11/07/18 Previous Rx's Medication Instructions Recorded nitrofurantoin monohyd/m-cryst 100 mg PO BID #20 cap 12/03/18 [Macrobid] Allergies Allergy/AdvReac Type Severity Reaction Status Date / Time prochlorperazine Allergy Severe Swelling Verified 11/07/18 08:10 [From COMPAZINE] of Lip/Tongue/Throat ondansetron [From Zofran] Allergy Intermediate Swelling Verified 11/07/18 08:10 of Lip/Tongue/Throat epinephrine [EPINEPHRINE] AdvReac Unknown TACHY Verified 11/07/18 08:10 hydromorphone [From DILAUDID] AdvReac Unknown CAN'T Verified 11/07/18 08:10 BREATH Review of Systems Constitutional Constitutional: Denies fever(s) ENT Ears, Nose, Mouth, and Throat: Denies neck pain and Denies sore throat Comments: Hoarse voice Cardiovascular Cardiovascular: Reports chest pain and Reports dyspnea Respiratory Respiratory: Reports cough and Reports dyspnea Genitourinary Genitourinary: Denies dysuria Genitourinary: Denies dysuria Musculoskeletal Musculoskeletal: Denies back pain, Denies myalgias and Denies neck pain Integumentary/Breasts Skin/Breast: Denies rash Neurologic Neurologic: Denies behavioral changes Psychiatric Psychiatric: Denies behavioral changes Hematologic/Lymphatic On Anticoagulants: No Allergic/Immunologic Allergic/Immunologic: Denies urticaria Patient History Medical History Atrial flutter Decreased vision Lupus Ulcerative colitis Family History (Updated 01/31/18 @ 06:10 by Palma Reddy DO) Father Coronary artery disease Family/Other Coronary artery disease Social History Smoking Status: Never smoker alcohol intake: never Smoking Status: Never smoker alcohol intake frequency: 0-2 drinks per day Substance Use Type: does not use Exam Initial Vital Signs Initial Vital Signs: Vital Signs Temperature 97.4 F L 10/04/20 14:40 Pulse Rate 84 10/04/20 14:40 Respiratory Rate 22 10/04/20 14:40 Blood Pressure 139/96 H 10/04/20 14:40 Pulse Oximetry 100 10/04/20 14:40 Const General: cooperative Limitations: mental status not altered HENMT Head: normal to inspection and normocephalic Nose: external nose normal Mouth: oral mucosae normal Throat: posterior oropharynx normal Neck Lymphatic: No lymphadenopathy Resp Effort & Inspection: normal respiratory effort Auscultation: clear to auscultation bilaterally Cardio Rate: regular rate Rhythm: regular rhythm GI Inspection: non-distended Palpation: soft Skin Lesions: no lesions Rashes: no rashes Neuro General: patient alert, patient awake and patient oriented x3 Extrem General: capillary refill normal and No edema Psych Appearance: grossly normal and well kempt Course Orders Ordered: ED Orders 10/04/20 15:00 XR chest 1V Stat EKG-12 Lead Stat Measure peak expiratory flow ONCE RT Consult Eval and Treat Now 10/04/20 15:15 COVID19 Stat 10/04/20 15:47 Complete Blood Count AUTO DIFF Stat Comprehensive Metabolic Panel Stat Lactate (Lactic Acid) Stat NT-proBNP (BNP-Adult 18+) Stat Prothrombin Time INR Stat Troponin & CK Cardiac Panel Stat Discontinued Medications Sodium Chloride (Normal Saline 0.9%) 1,000 mls @ 1,000 mls/hr IV BOLUS ONE Stop: 10/04/20 16:57 Last Infusion: 10/04/20 17:45 Dose: 0 mls/hr Documented by: Admin: 10/04/20 16:08 Dose: 1,000 mls/hr Documented by: HOWARD Vital Signs Vital signs: Vital Signs - 8 hr 10/04/20 14:40 10/04/20 14:52 10/04/20 14:55 Temperature 97.4 F L 98.0 F Pulse Rate 84 78 78 Respiratory Rate 22 12 Blood Pressure 139/96 H Blood Pressure [Left Arm] 176/84 H Pulse Oximetry 100 100 99 10/04/20 15:00 10/04/20 15:01 10/04/20 15:30 Temperature Pulse Rate 78 77 77 Respiratory Rate 18 18 16 Blood Pressure 153/75 H Blood Pressure [Left Arm] Pulse Oximetry 100 99 99 10/04/20 16:00 10/04/20 16:12 10/04/20 16:30 Temperature Pulse Rate 76 79 76 Respiratory Rate 18 20 22 Blood Pressure 155/72 H Blood Pressure [Left Arm] Pulse Oximetry 99 100 99 10/04/20 17:00 10/04/20 17:30 10/04/20 17:44 Temperature Pulse Rate 73 70 79 Respiratory Rate 20 22 20 Blood Pressure 174/76 H Blood Pressure [Left Arm] Pulse Oximetry 100 100 97 10/04/20 17:58 Temperature Pulse Rate 78 Respiratory Rate 30 H Blood Pressure 152/74 H Blood Pressure [Left Arm] Pulse Oximetry Medical Decision Making Lab Data Lab results reviewed: Yes I reviewed the patient's lab results. Result diagrams: 10/04/20 15:47 10/04/20 15:47 Labs: Lab Results 10/04/20 10/04/20 10/04/20 Range/Units 15:15 15:47 15:47 WBC 14.2 H (4.5-11.0) X10^3/uL RBC 4.53 (4.0-5.2) X10^6/uL Hgb 13.1 (12.0-16.0) g/dL Hct 40.6 (36-46) % MCV 89.7 (80-100) fL MCH 28.9 (26-34) PG MCHC 32.2 (30-36) % RDW 13.4 (11.6-14.8) % Plt Count 214 (150-400) X10^3/uL Neut % (Auto) 67.0 (50-75) % Lymph % (Auto) 25.8 (25-40) % Mccone % (Auto) 6.7 (3-14) % Eos % (Auto) 0.4 L (2-4) % Baso % (Auto) 0.1 (0-2) % Neut # (Auto) 9500 H (5028-9744) /uL Lymph # (Auto) 3700 (1223-7340) /uL Mccone # (Auto) 1000 H (0-900) /uL Eos # (Auto) 100 (0-450) /uL Baso # (Auto) 0 (0-100) /uL PT 15.4 H (10.1-12.7) SECONDS INR 1.3 (0.9-1.3) Sodium (137-145) mmol/L Potassium (3.4-5.1) mmol/L Chloride (98-107) mmol/L Carbon Dioxide (22-32) mmol/L BUN (7-17) mg/dL Creatinine (0.52-1.04) mg/dL Estimated GFR (>60) mL/min BUN/Creatinine Ratio (6-22) Glucose (70-100) mg/dL Lactate (0.7-2.1) mmol/L Calcium (8.4-10.2) mg/dL Total Bilirubin (0.2-1.3) mg/dL AST (14-36) IU/L ALT (<35) IU/L Alkaline Phosphatase (38-126) U/L Total Creatine Kinase (30-135) U/L CK-MB (CK-2) CK-MB (CK-2) Rel Index Troponin I (0.01-0.034) ng/mL NT-Pro-B Natriuret Pep (<125) pg/mL Total Protein (6.3-8.2) g/dL Albumin (3.5-5.0) g/dL Globulin (1.7-4.1) g/dL Albumin/Globulin Ratio (1.0-2.8) SARS-CoV-2 (PCR) Negative (Negative) 10/04/20 10/04/20 10/04/20 Range/Units 15:47 15:47 15:47 WBC (4.5-11.0) X10^3/uL RBC (4.0-5.2) X10^6/uL Hgb (12.0-16.0) g/dL Hct (36-46) % MCV (80-100) fL MCH (26-34) PG MCHC (30-36) % RDW (11.6-14.8) % Plt Count (150-400) X10^3/uL Neut % (Auto) (50-75) % Lymph % (Auto) (25-40) % Mccone % (Auto) (3-14) % Eos % (Auto) (2-4) % Baso % (Auto) (0-2) % Neut # (Auto) (0678-0508) /uL Lymph # (Auto) (7590-7331) /uL Mccone # (Auto) (0-900) /uL Eos # (Auto) (0-450) /uL Baso # (Auto) (0-100) /uL PT (10.1-12.7) SECONDS INR (0.9-1.3) Sodium 138 (137-145) mmol/L Potassium 3.6 (3.4-5.1) mmol/L Chloride 104 (98-107) mmol/L Carbon Dioxide 32 (22-32) mmol/L BUN 26 H (7-17) mg/dL Creatinine 1.34 H (0.52-1.04) mg/dL Estimated GFR 41.4 L (>60) mL/min BUN/Creatinine Ratio 19.4 (6-22) Glucose 97 (70-100) mg/dL Lactate 1.9 (0.7-2.1) mmol/L Calcium 9.3 (8.4-10.2) mg/dL Total Bilirubin 0.8 (0.2-1.3) mg/dL AST 20 (14-36) IU/L ALT 34 (<35) IU/L Alkaline Phosphatase 50 (38-126) U/L Total Creatine Kinase 37 (30-135) U/L CK-MB (CK-2) TNP CK-MB (CK-2) Rel Index TNP Troponin I < 0.012 (0.01-0.034) ng/mL NT-Pro-B Natriuret Pep 94 (<125) pg/mL Total Protein 6.8 (6.3-8.2) g/dL Albumin 3.9 (3.5-5.0) g/dL Globulin 2.9 (1.7-4.1) g/dL Albumin/Globulin Ratio 1.3 (1.0-2.8) SARS-CoV-2 (PCR) (Negative) Imaging Data Chest x-ray: Radiologist's Impression: [address] [id number] ReportSigned Patient: Chaka Soto#: [id number]: 1965Acct:[id number]/Sex: 55 / FDate of Service: 10/04/20Loc: EDAccession Number: [id number] Procedure: XR chest 1V Ordering Provider: Kong Figueroa D.O. PROCEDURE: XR CHEST 1V INDICATIONS: Shortness of Breath TECHNIQUE: One view of the chest was acquired. COMPARISON: [facility], , XR CHEST 1 VIEW, 12/07/2019, 11:38. [facility], , XR CHEST 1V, 11/07/2018, 8:23. FINDINGS: Surgical changes and devices: None. Lungs and pleura: Lungs are clear. No pleural effusions or pneumothorax. Mediastinum: Mediastinal contours appear normal. Heart size is normal. Bones and chest wall: No suspicious bony lesions. Overlying soft tissues appear unremarkable. IMPRESSION: No acute cardiopulmonary disease. Dictated by: Fadia Limon M.D. on 10/04/2020 at 15:55 Approved by: Fadia Limon M.D. on 10/04/2020 at 15:56 ECG Data Attestation: I personally reviewed and interpreted this ECG as follows: Prior ECG tracings: not available for review Interpretation: Sinus rhythm Ventricular rate is 77 Normal axis Normal QRS Normal QTC Nonspecific ST T wave changes MDM Narrative Medical decision making narrative: Patient has a benign exam, chest x-ray is negative. She is currently on antibiotics and steroids which most likely accounts for her leukocytosis. She is not in respiratory distress. Has clear lung exam. No fevers. EKG is nonspecific changes. Low suspicion for ACS. She does state she felt better after fluids. She was able to stand at bedside. I feel we can hold on further workup for now and I do feel that we should not change any of her current medication regiment. She was given return precautions and follow-up instructions. She expressed understanding and agreement. Discharge Plan Departure Patient Disposition: Home Clinical Impression: Shortness of breath, Lightheadedness Instructions: DI for Shortness of Breath Activity Restrictions/Additional Instructions: Based on your workup here in the emergency department today I would not recommend any changes to your current antibiotic or prednisone regimen. Recommend you contact your primary provider for follow-up. Return to the emergency department for any new or worsening symptoms Prescriptions: No Action bisoprolol fumarate 5 MG tablet 5 mg PO DAILY Qty: 0 RF: 0 levothyroxine [Synthroid] 25 MCG tablet 25 mcg PO DAILY Qty: 0 RF: 0 lorazepam 0.5 mg tablet 0.5 mg PO Q6H PRN (Reason: Anxiety) RF: 0 amlodipine 2.5 mg tablet 2.5 mg PO DAILY RF: 0 potassium chloride 10 mEq tablet extended release 10 meq PO DAILY RF: 0 prednisolone acetate 1 % drops,suspension See Rx Instructions .ROUTE .COMPLEX RF: 0 norethindrone acetate 5 mg tablet See Rx Instructions .ROUTE .COMPLEX RF: 0 rosuvastatin 10 mg tablet 10 mg PO DAILY RF: 0 mesalamine 1.2 gram tablet,delayed release (DR/EC) 3.6 g PO DAILY RF: 0 aspirin 81 mg Tablet,Delayed Release (Dr/Ec) 81 mg PO DAILY RF: 0 Vitamin C 1 tab PO DAILY RF: 0 nitrofurantoin monohyd/m-cryst [Macrobid] 100 mg capsule 100 mg PO BID Qty: 20 RF: 0 Referrals: Ana Ordonez MD [Primary Care Provider] -
[2020-10-04 16:08] LABS: INR 1.3 (0.9-1.3); Prothrombin Time 15.4 SECONDS (10.1-12.7)
[2020-10-04] MEDS: SODIUM CHLORIDE 0.9% 1,000 ML 1000 ML IV (16:08)
[2020-10-04 16:11] LABS: Add Manual Diff / Slide Review NO; Basophils Absolute Auto 0 /uL (0-100); Basophils Percent Auto 0.1 % (0-2); Eosinophils Absolute Auto 100 /uL (0-450); Eosinophils Percent Auto 0.4 % (2-4); Hematocrit 40.6 % (36-46); Hemoglobin 13.1 g/dL (12.0-16.0); Lymphocytes Absolute Auto 3700 /uL (1100-4500); Lymphocytes Percent Auto 25.8 % (25-40); Mean Corpuscular HGB Conc 32.2 % (30-36); Mean Corpuscular Hemoglobin 28.9 PG (26-34); Mean Corpuscular Volume 89.7 fL (80-100); Monocytes Absolute Auto 1000 /uL (0-900); Monocytes Percent Auto 6.7 % (3-14); Neutrophils Absolute Auto 9500 /uL (1500-7000); Platelet Count 214 X10^3/uL (150-400); Red Blood Cell Count 4.53 X10^6/uL (4.0-5.2); Red Cell Distribution Width 13.4 % (11.6-14.8); White Blood Cell Count 14.2 X10^3/uL (4.5-11.0)
[2020-10-04 16:15] LABS: Creatine Kinase 37 U/L (30-135)
[2020-10-04 16:16] LABS: Alanine Aminotransferase 34 IU/L (<35); Albumin 3.9 g/dL (3.5-5.0); Albumin Globulin Ratio 1.3 (1.0-2.8); Alkaline Phosphatase 50 U/L (38-126); Aspartate Aminotransferase 20 IU/L (14-36); BUN Creatinine Ratio 19.4 (6-22); Bilirubin Total 0.8 mg/dL (0.2-1.3); Blood Urea Nitrogen 26 mg/dL (7-17); Calcium 9.3 mg/dL (8.4-10.2); Carbon Dioxide 32 mmol/L (22-32); Chloride 104 mmol/L (98-107); Estimated Glomerular Filt Rate 41.4 mL/min (>60); Globulin 2.9 g/dL (1.7-4.1); Glucose 97 mg/dL (70-100); HEMOLYSIS < 15 (0-50); Lactate (Lactic Acid) 1.9 mmol/L (0.7-2.1); Potassium 3.6 mmol/L (3.4-5.1); Sodium 138 mmol/L (137-145); Total Protein 6.8 g/dL (6.3-8.2)
[2020-10-04 16:24] LABS: NT-proBNP (BNP-Adult 18+) 94 pg/mL (<125)
[2020-10-04 16:27] LABS: Troponin I < 0.012 ng/mL (0.01-0.034)
== END 2020-10-04 18:11 | disposition home or self-care (01) ==
PROVIDERS: Emergency Provider Emergency Medicine; PCP Family Medicine
DX: R06.02 Shortness of breath (principal); R42 Dizziness and giddiness; R05 Cough; Z20.822 Contact with and (suspected) exposure to COVID-19; R07.9 Chest pain, unspecified
CPT/HCPCS: 36415; 71045; 80053; 82550; 83605; 83880; 84484; 85025; 85610; 87635; 93005; 94150; 96360; 96361; 99283; 99284; C9803

== ENCOUNTER 2021-09-15 11:08 | Emergency (ER) | payer OTHER, SELFPAY ==
[2021-09-15] VITALS (12 sets, daily range): BP systolic 152–182; BP diastolic 77–91; PULSE 83–103; RESP 10–29; TEMP 36.2; O2SAT 96–99; BMI 39.9
--- NOTE | 2021-09-15 11:37 | ED_ITS ---
HPI - Allergic Reaction General Chief complaint: Allergic Reaction Stated complaint: anaphylactic reaction, high BP Time Seen by Provider: 09/15/21 11:28 Source: patient Mode of arrival: Ambulatory Limitations: no limitations History of Present Illness HPI narrative: 56-year-old female comes emergency department with concern for anaphylaxis. Patient states she started having symptoms consistent. They do not know the exact cause but she has been told she has mast cell disease that causes this. She does have an EpiPen an poising inspector that she follows with regularly. She does take Xolair Prescribed by her poising inspector. Because of the recent weather and snow she is off on her normal dosing cycle which she thinks is causing her to flare a little bit more frequently. She did not give her EpiPen last night when it started because she had both of her twin daughters and was alone she did not wish to come to the ER. She has had some tightness in her throat her voice is little gravelly and it feels difficult to swallow. She has had some diarrhea. She states she has had a headache. As well as some swelling and redness of her hands and feet which he state are all typical. She has not felt tight or wheezy in her chest. She has not had any nausea or vomiting. She does have a history of lupus and she is on Coumadin for antiphospholipid syndrome., levothyroxine and bisprolol all for hypertension. She states she has been hypertensive recently and they had doubled her dose of her bisprolol. She does note she has also had some UTI type symptoms with dysuria, urgency and sense of frequency with some suprapubic discomfort but has history of interstitial cystitis and states it is difficult sometimes for her to know if she is having a flare or an actual infection. Related Data Home Medications Medication Instructions Recorded Confirmed bisoprolol fumarate 5 mg tablet 5 mg PO DAILY #0 10/29/16 11/07/18 levothyroxine 25 mcg tablet 25 mcg PO DAILY #0 10/29/16 11/07/18 (Synthroid) Vitamin C 1 tab PO DAILY 11/07/18 11/07/18 amlodipine 2.5 mg tablet 2.5 mg PO DAILY 11/07/18 11/07/18 aspirin 81 mg tablet,delayed 81 mg PO DAILY 11/07/18 11/07/18 release lorazepam 0.5 mg tablet 0.5 mg PO Q6H PRN 11/07/18 11/07/18 mesalamine 1.2 gram tablet,delayed 3.6 g PO DAILY 11/07/18 11/07/18 release norethindrone acetate 5 mg tablet See Rx Instructions .ROUTE .COMPLEX 11/07/18 11/07/18 potassium chloride 10 mEq 10 meq PO DAILY 11/07/18 11/07/18 tablet,extended release prednisolone acetate 1 % eye See Rx Instructions .ROUTE .COMPLEX 11/07/18 11/07/18 drops,suspension rosuvastatin 10 mg tablet 10 mg PO DAILY 11/07/18 11/07/18 Previous Rx's Medication Instructions Recorded nitrofurantoin 100 mg PO BID #20 cap 12/03/18 monohydrate/macrocrystals 100 mg capsule (Macrobid) prednisone 20 mg tablet 60 mg PO DAILY 3 Days #9 tab 09/15/21 Allergies Allergy/AdvReac Type Severity Reaction Status Date / Time prochlorperazine Allergy Severe Swelling Verified 11/07/18 08:10 [From COMPAZINE] of Lip/Tongue/Throat ondansetron [From Zofran] Allergy Intermediate Swelling Verified 11/07/18 08:10 of Lip/Tongue/Throat epinephrine [EPINEPHRINE] AdvReac Unknown TACHY Verified 11/07/18 08:10 hydromorphone [From DILAUDID] AdvReac Unknown CAN'T Verified 11/07/18 08:10 BREATH Review of Systems Review of Systems ROS Unobtainable: All systems reviewed & are unremarkable except as noted in HPI and below Patient History Medical History Atrial flutter Decreased vision Lupus Ulcerative colitis Family History Father Coronary artery disease Family/Other Coronary artery disease Social History Smoking Status: Never smoker alcohol intake: never Smoking Status: Never smoker alcohol intake frequency: 0-2 drinks per day Substance Use Type: does not use Exam Narrative Exam Narrative: GEN: well nourished, well appearing female, alert and oriented x 3, patient appears to be in mild distress. HEENT: Atraumatic, nares are clear, TMs are clear with no fluid, there is no conjunctival pallor. Throat is clear without any exudates, erythema, tonsillar enlargement or uvular deviation, and no external oropharyngeal swelling appreciated. Patient has slightly hoarse voice. Clear speech otherwise. No stridor. HEART: Regular rate and rhythm without murmur, clicks, rubs. LUNGS:Lungs clear to auscultation, no wheezes, rales, crackles, chest moves symmetrically ABD:bowel sounds normal, soft, non-tender, no guarding, rebound, rigidity, no masses noted, no hepatosplenomegaly MSCL: muscles strength 5/5 upper and lower extremities, full range of motion, normal gait. Patient has some mild swelling bilateral hands with some erythema of the palms and fingers bilaterally. NEURO:CN 2-12 intact, sensation normal SKIN: No other rash or skin changes appreciated. Initial Vital Signs Initial Vital Signs: Vital Signs Temperature 97.1 F L 09/15/21 11:18 Pulse Rate 103 H 09/15/21 11:18 Respiratory Rate 18 09/15/21 11:18 Blood Pressure 180/91 H 09/15/21 11:18 Pulse Oximetry 96 09/15/21 11:18 Course Orders Ordered: ED Orders 09/15/21 11:52 Prothrombin Time INR Stat 09/15/21 13:03 Urine Microscopic Stat Discontinued Medications Acetaminophen (Acetaminophen 325 Mg Tablet) 975 mg PO NOW ONE Stop: 09/15/21 12:37 Last Admin: 09/15/21 13:08 Dose: 975 mg Documented by: JUAN DANIEL Epinephrine HCl (Epinephrine 1 Mg/Ml) 0.3 mg IM NOW ONE Stop: 09/15/21 14:07 Last Admin: 09/15/21 14:16 Dose: 0.3 mg Documented by: JUAN DANIEL Famotidine (Famotidine 20 Mg/2 Ml Vial) 20 mg IV NOW ONE Stop: 09/15/21 11:38 Last Admin: 09/15/21 12:07 Dose: 20 mg Documented by: JUAN DANIEL Hydroxyzine Pamoate (Hydroxyzine Pamoate 25 Mg Capsule) 50 mg PO NOW ONE Stop: 09/15/21 11:38 Last Admin: 09/15/21 12:07 Dose: 50 mg Documented by: JUAN DANIEL Sodium Chloride (Normal Saline 0.9%) 1,000 mls @ 1,000 mls/hr IV BOLUS ONE Stop: 09/15/21 12:36 Last Infusion: 09/15/21 13:50 Dose: 0 mls/hr Documented by: Admin: 09/15/21 12:08 Dose: 1,000 mls/hr Documented by: JUAN DANIEL Methylprednisolone (Methylprednisolone 125 Mg/2 Ml Vial) 125 mg IV NOW ONE Stop: 09/15/21 11:38 Last Admin: 09/15/21 12:07 Dose: 125 mg Documented by: JUAN DANIEL Reevaluation(s) Reevaluation #1: Recheck after medications. Patient still has sensation of throat closing. She has been in touch with her poising inspector who does recommend that she will likely not have resolution of symptoms until epinephrine. After long discussion with risks versus benefits patient continues to have that sensation. She has 2 small children at home and no on else to monitor with her so she elects to go had a dose of epinephrine department. Time: 13:56 Reevaluation #2: Patient states her throat has opened up and feels much better. She feels safe to return home at this time after 2 hours of observation with epinephrine. Time: 16:20 Vital Signs Vital signs: Vital Signs - 8 hr 09/15/21 11:18 09/15/21 13:00 09/15/21 13:23 Temperature 97.1 F L Pulse Rate 103 H 91 H 99 H Respiratory Rate 18 16 25 H Blood Pressure 180/91 H 152/80 H Pulse Oximetry 96 97 97 09/15/21 13:30 09/15/21 14:00 09/15/21 14:01 Temperature Pulse Rate 92 H 88 91 H Respiratory Rate 17 10 L 29 H Blood Pressure 155/88 H 156/77 H Pulse Oximetry 99 97 98 09/15/21 14:30 09/15/21 15:00 09/15/21 15:30 Temperature Pulse Rate 86 83 85 Respiratory Rate 10 L 12 16 Blood Pressure 165/85 H 182/90 H Pulse Oximetry 97 96 97 09/15/21 15:31 09/15/21 16:00 09/15/21 16:01 Temperature Pulse Rate 85 87 87 Respiratory Rate 13 14 18 Blood Pressure 175/86 H 165/89 H Pulse Oximetry 97 97 97 MDM - Allergic Reaction Lab Data Labs: Lab Results 09/15/21 09/15/21 Range/Units 11:52 13:03 PT 27.3 H (10.1-12.7) SECONDS INR 2.4 H (0.9-1.3) Urine RBC 1-5/hpf D (0-5/HPF) Urine WBC None seen (0-5/HPF) Ur Squamous Epith Cells 5-10 /hpf H (0-5/HPF) Urine Bacteria Occasional (0-1) (None) Ur Culture Indicated? Cult not indicated Urine Dip Bedside Urine Glucose Negative Bedside Urine Bilirubin - Negative Bedside Urine Ketone - Negative Urine Specific [place] 1.015 Bedside Urine Occult Blood +/- Bedside Urine pH 6.0 Bedside Urine Protein - Negative Bedside Urine Urobilinogen - Negative Bedside Urine Nitrite - Negative Bedside Urine Leukocytes - Negative Esterase MDM Narrative Medical decision making narrative: This is a 56-year-old female who comes to the emergency department with complaint of anaphylactic reaction. Patient has having symptoms from last night. She has what she describes as a mast cell disease or disorder and follows with an poising inspector to his recommended she use her EpiPen and be evaluated. She has been hypertensive recently so she was reluctant to do so. She did try a dose of prednisone 60 mg last night with minimal to no improvement. She is on Coumadin and INR was obtained. Patient received Solu- Medrol, Pepcid and hydroxyzine as she states she has an adverse reaction to Benadryl. She had very minimal improvement with some slight decrease in swelling of the lips but no changes in her throat or airway. After discussion p masoud to give epinephrine IM initially responded well to this and felt complete resolution of those symptoms. She was monitored for 2 additional hours and felt safe to return home. All questions answered patient does have her own EpiPen at home and feels comfortable using this as needed. She was given a prescription for prednisone for 3 days and is going to reach out to her poising inspector for further recommendations for medication management. Discharge Plan Departure Patient Disposition: Home Clinical Impression: Allergic reaction Instructions: DI for Anaphylaxis Activity Restrictions/Additional Instructions: Follow with your poising inspector regarding your medication and dosing. Continue home medications as prescribed. You can continue with prednisone 1 tablet x3 days. Prescription sent to [facility] in [place]. Your INR is 2.4 today. Please return for new or worsening symptoms, swelling of your neck, throat, face lips or airway, wheezing tightness, persistent vomiting, new rashes or hives or other new or concerning symptoms. Prescriptions: New prednisone 20 mg tablet 60 mg PO DAILY 3 Days Qty: 9 0RF No Action bisoprolol fumarate 5 MG tablet 5 mg PO DAILY Qty: 0 0RF levothyroxine [Synthroid] 25 MCG tablet 25 mcg PO DAILY Qty: 0 0RF lorazepam 0.5 mg tablet 0.5 mg PO Q6H PRN (Reason: Anxiety) 0RF Label Comments: amlodipine 2.5 mg tablet 2.5 mg PO DAILY 0RF potassium chloride 10 mEq tablet extended release 10 meq PO DAILY 0RF Label Comments: TK 1 T PO D prednisolone acetate 1 % drops,suspension See Rx Instructions .ROUTE .COMPLEX 0RF Label Comments: INT 1 GTT BID OS FOR 2 WEEKS THEN ONCE DAILY FOR 2 WEEKS Rx Instructions: 1 dose into the eye(s) norethindrone acetate 5 mg tablet See Rx Instructions .ROUTE .COMPLEX 0RF Label Comments: TK 1 T PO BID UNTIL BLEEDING STOPS THEN ONE TABLET QD FOR 10 DAYS Rx Instructions: 5 mg orally rosuvastatin 10 mg tablet 10 mg PO DAILY 0RF Label Comments: PATIENT STATES OFF FOR NOW SINCE HAD POSSIBLE REACTION TO IT. 11/07/18 mesalamine 1.2 gram tablet,delayed release (DR/EC) 3.6 g PO DAILY 0RF Label Comments: TK 3 TS PO DAILY aspirin 81 mg Tablet,Delayed Release (Dr/Ec) 81 mg PO DAILY 0RF Vitamin C 1 tab PO DAILY 0RF nitrofurantoin monohyd/m-cryst [Macrobid] 100 mg capsule 100 mg PO BID Qty: 20 0RF Rx Instructions: must administer with a meal/food Referrals: Jose Moulton MD [Primary Care Provider] -
[2021-09-15] MEDS: methylPREDNISolone 125 MG/2 ML VIAL IV (12:07)
[2021-09-15] MEDS: hydrOXYzine pamoate 25 MG CAPSULE 50 MG PO (12:07)
[2021-09-15] MEDS: FAMOTIDINE 20 MG/2 ML VIAL IV (12:07)
[2021-09-15] MEDS: SODIUM CHLORIDE 0.9% 1,000 ML 1000 ML IV (12:08)
[2021-09-15 12:46] LABS: INR 2.4 (0.9-1.3); Prothrombin Time 27.3 SECONDS (10.1-12.7)
[2021-09-15] MEDS: ACETAMINOPHEN 325 MG TABLET 975 MG PO (13:08)
[2021-09-15 13:52] LABS: Bacteria Urine Occasional (0-1); Culture Indicated Urine Cult Not Indicated; RBC Urine 1-5/HPF (0-5/HPF); Squamous Epithelial Cell Urine 5-10 /HPF (0-5/HPF); WBC Urine None Seen (0-5/HPF)
--- NOTE | 2021-09-15 13:54 | PC.NURSE ---
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 Patient in close communication with electronic device monitor. Symptoms started last night would usually use EPi but did not feel comfortable in doing so due to her blood pressure being slightly elevated for her. Patient speaking in full sentences, lungs clear and no obvious swelling noted to lips and throat. Patient managing secretions.
[2021-09-15] MEDS: EPINEPHrine 1 MG/ML 0.3 MG IM (14:16)
== END 2021-09-15 16:58 | disposition home or self-care (01) ==
PROVIDERS: Emergency Provider Emergency Medicine; PCP Internal Medicine
DX: T78.40XA Allergy, unspecified, initial encounter (principal); D47.02 Systemic mastocytosis
CPT/HCPCS: 36415; 81003; 81015; 85610; 96361; 96372; 96374; 96375; 99284; J0171; J2930